=== PATIENT | female | born 1975 | race Caucasian/White ===

== ENCOUNTER 2017-06-26 22:26 | Emergency (ER) | payer OTHER ==
[~2017-06-26] VITALS: Ht 162.6 cm; Wt 73.9 kg
[~2017-06-26 22:26] MED LIST: ACET500; ALBU90OI INH; AMOCLA500 PO; AMOX500 PO; Antivert25 MG PO; Ativan1 MG SL; BISM300CH PO; CEPH500 PO; CIPR500 PO; CLAR500 PO; CLON.1 PO; DOXY100 PO; FAMO20 PO; Guaifenesin-Co118 ML PO; HYDACE5 PO; IBUP200; IBUP400 PO; IBUP600 PO; IBUP800 PO; METO25 PO; METO50 PO; METO50ER PO; MULVITMINE; OMEP20ER PO; OXYACE5T PO; OXYC5 PO; PENVK250 PO; PENVK500 PO; POTCHL10ER PO; PROM25 PO; RXHYDACE PO; RXPENVK250 PO; RXPROM25 PO; RXPROM25S PR; SUCR1 PO; SULTRISS; Ultram50 MG PO; VANCO IV; Veetids 500500 MG PO; Zithromax250 MG PO
[2017-06-26] MEDS ORDERED: LOSARTAN POTAS100 MG PO (22:59)
[2017-06-27] MEDS ORDERED: BENZ100A PO ×2 (01:11→05:53)
== END 2017-06-27 02:00 | disposition left against medical advice (07) ==
LOC: ER 22:26
DX: Z53.21 Procedure and treatment not carried out due to patient leaving prior to being seen by health care provider (principal)
CPT/HCPCS: 71046; 99283

== ENCOUNTER 2017-06-27 05:44 | Emergency (ER) | payer OTHER ==
[~2017-06-27] VITALS: Ht 162.6 cm; Wt 73.9 kg
[~2017-06-27 05:44] MED LIST changes: +BENZ100A PO; +LOSARTAN POTAS100 MG PO
[2017-06-27] MEDS ORDERED: BENZ100A PO (05:53)
== END 2017-06-27 06:00 | disposition home or self-care (01) ==
LOC: ER 05:44
DX: J20.9 Acute bronchitis, unspecified (principal); I10 Essential (primary) hypertension; F17.200 Nicotine dependence, unspecified, uncomplicated; Z88.5 Allergy status to narcotic agent; Z79.899 Other long term (current) drug therapy; Z87.442 Personal history of urinary calculi
CPT/HCPCS: 99283

== ENCOUNTER → 2017-06-29 | Outpatient (CLI) | payer OTHER | LOC: LAB SHORT 12:48 → LAB UCHC 12:48 | DX: N39.0 Urinary tract infection, site not specified (principal) | CPT/HCPCS: 87086 ==

== ENCOUNTER 2018-04-20 01:07 | Inpatient (IN) | payer OTHER ==
[~2018-04-20] VITALS: Ht 162.6 cm; Wt 72.7 kg
[2018-04-20 01:38] LABS: Source, Urine Clean Catch
[2018-04-20 01:40] LABS: Bilirubin, Urine Neg (Neg); Blood, Urine Neg (Neg); Glucose Qualitative, Urine Neg (Neg); Ketones, Urine Neg (Neg); Leukocyte Esterase, Urine Neg (Neg); Nitrite, Urine Neg (Neg); Protein, Urine Neg (Neg); Urobilinogen, Urine NORM (Normal)
[2018-04-20 01:42] LABS: Appearance, Urine Clear (Clear); Color, Urine Pale Yellow (P-Yellow)
[2018-04-20 01:51] LABS: U Amphetamine Screen Not Detected; U Barbituate Screen Not Detected; U Benzodiazapine Screen Not Detected; U Buprenorphine Screen Not Detected; U Cannabinoids Screen Not Detected; U Cocaine Screen Not Detected; U Methadone Screen Not Detected; U Methamphetamine Screen Not Detected; U Opiates Screen Not Detected; U Oxycodone Screen Not Detected; U Phencyclidine Screen Not Detected; U Propoxyphene Screen Not Detected
[2018-04-20 02:11] LABS: BASOPHILS ABSOLUTE AUTO 0.09 K/mm3 (0.00-0.23); BASOPHILS PERCENT AUTO 1 % (0-2); EOSINOPHILS ABSOLUTE AUTO 0.38 K/mm3 (0.00-0.68); EOSINOPHILS PERCENT AUTO 4 % (0-6); Hematocrit 37.9 % (33.0-51.0); Hemoglobin 12.8 g/dL (11.5-16.0); IMMATURE GRAN ABSOLUTE AUTO 0.05 K/mm3 (0.00-0.10); IMMATURE GRAN PERCENT AUTO 1 % (0-1); LYMPHOCYTES ABSOLUTE AUTO 5.87 K/mm3 (0.84-5.20); LYMPHOCYTES PERCENT AUTO 56 % (21-46); MONOCYTES ABSOLUTE AUTO 0.47 K/mm3 (0.16-1.47); MONOCYTES PERCENT AUTO 5 % (4-13); Mean Corpuscular HGB 33.5 pg (26.0-34.0); Mean Corpuscular HGB Conc 33.8 g/dL (31.5-36.5); Mean Corpuscular Volume 99 fL (80-100); Mean Platelet Volume 11.4 fL (9.1-12.4); NEUTROPHILS ABSOLUTE AUTO 3.66 K/mm3 (1.96-9.15); NEUTROPHILS PERCENT AUTO 35 % (41-73); Platelet Count 308 K/mm3 (150-400); RDW Standard Deviation 43.8 fL (35.1-46.3); Red Blood Cell Count 3.82 M/mm3 (3.80-5.20); White Blood Cell Count 10.52 K/mm3 (4.00-11.30)
[2018-04-20 02:17] LABS: Alanine Aminotransfer (ALT/SGP 25 U/L (12-78); Albumin, Blood 3.2 g/dL (3.4-5.0); Albumin/Globulin Ratio 0.8 (0.8-1.8); Alk Phos 118 U/L (50-136); Anion Gap 11 mmol/L (6-16); Aspartate Aminotrans (AST/SGOT 17 U/L (12-37); Bilirubin, Total 0.2 mg/dL (0.1-1.0); Blood Urea Nitrogen 14 mg/dL (8-24); Bun/Creatinine Ratio 14.4 (12.0-20.0); CO2, Blood 19 mmol/L (21-32); Calcium, Blood 8.1 mg/dL (8.5-10.1); Chloride, Blood 109 mmol/L (98-108); Creatinine, Blood 0.97 mg/dL (0.40-1.00); Ethanol (Alcohol), Blood, Med 229 mg/dL; Globulin, Blood 3.9 g/dL (2.2-4.0); Glomerular Filtration Rate >60 (60-); Glucose, Blood 107 mg/dL (70-99); Potassium, Blood 3.7 mmol/L (3.5-5.5); Salicylate 5.5 mg/dL (2.8-20.0); Sodium, Blood 139 mmol/L (136-145); Total Protein, Blood 7.1 g/dL (6.4-8.2)
[2018-04-20 02:23] LABS: Acetaminophen, Random <2.0 ug/mL (10.0-30.0)
[2018-04-20] MEDS ORDERED: CLON.1 PO (02:37)
--- NOTE | 2018-04-20 04:01 | NUR ---
DR. YOUNG NOTIFIED AND UPDATED. NEW ORDERS TO BOLUS ONE LITER NORMAL SALINE THEN MAINTENANCE FLUID OF NORMAL SALINE 75mL/hr X1 LITER.
--- NOTE | 2018-04-20 04:15 | NUR ---
PT ARRIVED TO ROOM ICU 15 VIA GURNEY FROM THE ED. PT STOOD AND TRANSFERRED SELF TO ICU BED WITHOUT DIFFICULTY. PT A+O AND ASWERED QUESTIONS APPROPRIATELY. PT DENIED DIZZINESS, PAIN, AND/OR NAUSEA. PT SOON BECAME DROWSY BUT AROUSABLE. PT BECAME MORE HYPOTENSIVE AND BRADYCARDIC DURING SLEEP. DR. YOUNG NOTIFIED AND UPDATED. NEW ORDERS TO BOLUS 1L NS AND THEN INFUSION NS 75/hr X1 LITER.
--- NOTE | 2018-04-20 04:30 | NUR ---
POISON CONTROL CALLED AND GIVEN UPDATE. ALL QUESTIONS ANSWERED. POISON CONTROL FAXING BETA ADELINE OVERDOSE INFORMATION.
--- NOTE | 2018-04-20 05:50 | NUR ---
DR. YOUNG AT BEDSIDE. NO NEW ORDERS GIVEN AT THIS TIME.
--- NOTE | 2018-04-20 08:10 | NUR ---
ASSUMED CARE: REPORT RECEIVED FROM GEMINI Reno RN. ASSUMED CARE OF THIS PT AT APPROX 0700. ON ASSESSMENT, PT IS RESTING QUIETLY. SHE DENIES PAIN OR NEEDS & STS SHE IS CURRENTLY EXPERIENCING NO SI. PROVIDER, DR. YANEZ, HAS BEEN AT BEDSIDE THIS MORNING WELL. REGULAR DIET HAS BEEN ORDERED FOR BREAKFAST. WILL CONTINUE TO MONITOR & UPDATE NEEDED.
--- NOTE | 2018-04-20 17:50 | NUR ---
SHIFT SUMMARY: NO ACUTE CHANGES THIS SHIFT. PT A&O, PLEASANT & COOPERATIVE W/ CARE. SHE HAS CONTINUED TO DENY SI. PT WAS CLEARED BY DR. SANCHEZ OF SUICIDE PRECAUTIONS THIS AFTERNOON, 1:1 SITTER NO LONGER AT BEDSIDE. LS CLEAR T/O, PT REMAINS ON RA W/ O2 SATS > 92%. MONITOR SHOWS SB W/ HR 40-50s. POISON CONTROL UPDATED THIS AM & RECOMMENDS TELE MONITORING FOR ANOTHER 24 HRS FROM THAT TIME. BT x4, HEALTHY APPETITE, VOIDING W/O DIFFICULTY. SKIN OVERALL CDI. MED TELE STATUS. WILL CONTINUE TO MONITOR & REPORT OFF TO ONCOMING RN.
[2018-04-21 03:20] LABS: BASOPHILS ABSOLUTE AUTO 0.06 K/mm3 (0.00-0.23); BASOPHILS PERCENT AUTO 1 % (0-2); EOSINOPHILS ABSOLUTE AUTO 0.22 K/mm3 (0.00-0.68); EOSINOPHILS PERCENT AUTO 3 % (0-6); Hematocrit 37.5 % (33.0-51.0); Hemoglobin 12.6 g/dL (11.5-16.0); IMMATURE GRAN ABSOLUTE AUTO 0.01 K/mm3 (0.00-0.10); IMMATURE GRAN PERCENT AUTO 0 % (0-1); LYMPHOCYTES ABSOLUTE AUTO 3.87 K/mm3 (0.84-5.20); LYMPHOCYTES PERCENT AUTO 50 % (21-46); MONOCYTES ABSOLUTE AUTO 0.43 K/mm3 (0.16-1.47); MONOCYTES PERCENT AUTO 6 % (4-13); Mean Corpuscular HGB 33.6 pg (26.0-34.0); Mean Corpuscular HGB Conc 33.6 g/dL (31.5-36.5); Mean Corpuscular Volume 100 fL (80-100); Mean Platelet Volume 11.4 fL (9.1-12.4); NEUTROPHILS ABSOLUTE AUTO 3.15 K/mm3 (1.96-9.15); NEUTROPHILS PERCENT AUTO 41 % (41-73); Platelet Count 269 K/mm3 (150-400); RDW Coefficient Variation 12.1 % (11.7-14.2); RDW Standard Deviation 44.8 fL (35.1-46.3); Red Blood Cell Count 3.75 M/mm3 (3.80-5.20); White Blood Cell Count 7.74 K/mm3 (4.00-11.30)
[2018-04-21 03:37] LABS: Albumin/Globulin Ratio 0.8 (0.8-1.8); Bilirubin, Total 0.4 mg/dL (0.1-1.0); Bun/Creatinine Ratio 15.9 (12.0-20.0); Calcium, Blood 8.6 mg/dL (8.5-10.1); Creatinine, Blood 1.13 mg/dL (0.40-1.00); Globulin, Blood 3.8 g/dL (2.2-4.0); Potassium, Blood 4.1 mmol/L (3.5-5.5); Total Protein, Blood 6.8 g/dL (6.4-8.2)
--- NOTE | 2018-04-21 07:30 | NUR ---
ASSUMED CARE OF PATIENT; SEE ASSESSMENT CHARTING FOR DETAILS. PATIENT A/O X3; DENIES ACUTE PAIN OR DISCOMFORT. DENIES SUICIDAL IDEATION. ANXIOUS TO BE DISCHARGED HOME, THIS AM, D/T MULTIPLE APPTS., TO INCLUDE A COURT HEARTING. DR. YANEZ ARRIVED AND WORKING ON D/C ORDERS. PATIENT UP IN ROOM ADLIB; COOPERATIVE. STATES SHE MAY HAVE TO WALK D/T UNABLE TO REACH HER BOYFRIEND OR ANYONE ELSE TO DRIVE HER; RN OFFERED THAT THE HOSPITAL PROVIDES [facility], WHEN AVAILABLE, TO TAKE PATIENTS' HOME WHO HAVE NO TRANSPORTATION.
--- NOTE | 2018-04-21 08:30 | NUR ---
D/C RX'S (X3) CALLED INTO [facility]; PHYSICIAN ORDEREDD 2 WEEK SUPPLY TO ALLOW F/U WITH PCP IN 1-2 WEEKS.
[2018-04-21] MEDS ORDERED: CLON.1 PO (08:31)
--- NOTE | 2018-04-21 08:45 | NUR ---
DISCHARGE INSTRUCTIONS COMPLETED; DISCUSSED WITH PATIENT, IN DETAIL, AND SHE SIGNED ACKNOWLEDGEMENT AND UNDERSTANDING. STILL UNABLE TO OBTAIN A RIDE HOME; RN WILL CONTACT [facility] AND SEE IF THEY CAN MAKE IT.
--- NOTE | 2018-04-21 08:55 | NUR ---
T/C TO [facility]; UNABLE TO SPEAK TO MEDICAL BILLER CODER AND MESSAGE ON VOICEMAIL INSTRUCTS NOT TO LEAVE MESSAGE BUT TO KEEP TRYING TO CALL BACK; RN ATTEMPTED THIS SEVERAL TIMES; SERVICE IS VERY BUSY DUE TO RECENT STORM. PATIENT STATES SHE WILL WALK D/T HAS AN APPT. WITH [facility] AT 1000 RE: HER KIDS. PATIENT DRESSED; RN WILL REMOVE IV'S (X2).
--- NOTE | 2018-04-21 09:10 | NUR ---
DISCHARGED; ACCOMPANIED TO FRONT DOOR AND PATIENT AMBULATING TO APPT.; VERY STURDY ON FEET. PERSONAL BELONGINGS WITH PATIENT.
== END 2018-04-21 09:10 | disposition home or self-care (01) | DRG 918 ==
LOC: ER 01:07 → ICUW 01:08
PROVIDERS: Emergency Medicine; Hospitalist; ADMIT Internal Medicine
DX: T46.5X1A Poisoning by other antihypertensive drugs, accidental (unintentional), initial encounter (principal); E87.2 Acidosis; T44.7X1A Poisoning by beta-adrenoreceptor antagonists, accidental (unintentional), initial encounter; F10.129 Alcohol abuse with intoxication, unspecified; R00.1 Bradycardia, unspecified; I95.9 Hypotension, unspecified; F43.21 Adjustment disorder with depressed mood; F17.210 Nicotine dependence, cigarettes, uncomplicated; Z88.8 Allergy status to other drugs, medicaments and biological substances
CPT/HCPCS: 36415; 80053; 81003; 81025; 83605; 84443; 85025; 93005; 93010; G0378; G0480; J1650; J7030

== ENCOUNTER 2018-07-05 16:58 | Emergency (ER) | payer OTHER ==
[~2018-07-05] VITALS: Ht 162.6 cm; Wt 72.0 kg
[2018-07-05 17:51] LABS: Source, Urine Clean Catch
[2018-07-05 17:56] LABS: Appearance, Urine Clear (Clear); Bilirubin, Urine Neg (Neg); Blood, Urine 5+ (Neg); Color, Urine Amber (P-Yellow); Glucose Qualitative, Urine Neg (Neg); Ketones, Urine Neg (Neg); Leukocyte Esterase, Urine 1+ (Neg); Nitrite, Urine Neg (Neg); Protein, Urine Neg (Neg); Urobilinogen, Urine 1+ (Normal)
[2018-07-05 18:25] LABS: Bacteria Few /hpf; Squamous Epithelial Cells Few /hpf (Few)
[2018-07-05 18:28] LABS: BASOPHILS ABSOLUTE AUTO 0.04 K/mm3 (0.00-0.23); BASOPHILS PERCENT AUTO 0 % (0-2); EOSINOPHILS ABSOLUTE AUTO 0.02 K/mm3 (0.00-0.68); EOSINOPHILS PERCENT AUTO 0 % (0-6); Hematocrit 39.7 % (33.0-51.0); Hemoglobin 13.3 g/dL (11.5-16.0); IMMATURE GRAN ABSOLUTE AUTO 0.06 K/mm3 (0.00-0.10); IMMATURE GRAN PERCENT AUTO 0 % (0-1); LYMPHOCYTES PERCENT AUTO 12 % (21-46); MONOCYTES ABSOLUTE AUTO 0.97 K/mm3 (0.16-1.47); MONOCYTES PERCENT AUTO 7 % (4-13); Mean Corpuscular HGB 33.3 pg (26.0-34.0); Mean Corpuscular HGB Conc 33.5 g/dL (31.5-36.5); Mean Corpuscular Volume 100 fL (80-100); Mean Platelet Volume 11.3 fL (9.1-12.4); NEUTROPHILS ABSOLUTE AUTO 11.58 K/mm3 (1.96-9.15); NEUTROPHILS PERCENT AUTO 80 % (41-73); Platelet Count 344 K/mm3 (150-400); RDW Coefficient Variation 11.9 % (11.7-14.2); RDW Standard Deviation 44.5 fL (35.1-46.3); Red Blood Cell Count 3.99 M/mm3 (3.80-5.20); White Blood Cell Count 14.47 K/mm3 (4.00-11.30)
[2018-07-05 18:53] LABS: Alanine Aminotransfer (ALT/SGP 38 U/L (12-78); Albumin, Blood 3.4 g/dL (3.4-5.0); Albumin/Globulin Ratio 0.6 (0.8-1.8); Alk Phos 197 U/L (50-136); Anion Gap 6 mmol/L (6-16); Aspartate Aminotrans (AST/SGOT 26 U/L (12-37); Bilirubin, Total 1.4 mg/dL (0.1-1.0); Blood Urea Nitrogen 7 mg/dL (8-24); Bun/Creatinine Ratio 7.7 (12.0-20.0); CO2, Blood 26 mmol/L (21-32); Chloride, Blood 102 mmol/L (98-108); Creatinine, Blood 0.91 mg/dL (0.40-1.00); Globulin, Blood 5.4 g/dL (2.2-4.0); Glomerular Filtration Rate >60 (60-); Glucose, Blood 110 mg/dL (70-99); Potassium, Blood 3.3 mmol/L (3.5-5.5); Sodium, Blood 134 mmol/L (136-145); Total Protein, Blood 8.8 g/dL (6.4-8.2)
[2018-07-05] MEDS ORDERED: CEPH500 PO (19:42)
[2018-07-05] MEDS ORDERED: KETO10 PO (19:42)
== END 2018-07-05 19:56 | disposition home or self-care (01) ==
LOC: ER 16:58
PROVIDERS: Emergency Medicine
DX: N39.0 Urinary tract infection, site not specified (principal); D72.829 Elevated white blood cell count, unspecified; Z88.8 Allergy status to other drugs, medicaments and biological substances; Z79.899 Other long term (current) drug therapy; I10 Essential (primary) hypertension; F17.210 Nicotine dependence, cigarettes, uncomplicated
CPT/HCPCS: 36415; 76770; 80053; 81001; 83690; 85025; 87086; 96361; 96374; 99284-25; J1885; J7030

== ENCOUNTER 2018-11-03 23:26 | Emergency (ER) | payer OTHER ==
[~2018-11-03] VITALS: Ht 162.6 cm; Wt 71.7 kg
[~2018-11-03 23:26] MED LIST changes: +KETO10 PO
[2018-11-04 00:26] LABS: Source, Urine Clean Catch
[2018-11-04 00:36] LABS: Bilirubin, Urine Neg (Neg); Blood, Urine 3+ (Neg); Glucose Qualitative, Urine Neg (Neg); Ketones, Urine Neg (Neg); Leukocyte Esterase, Urine 1+ (Neg); Nitrite, Urine Neg (Neg); Protein, Urine Neg (Neg); Specific Gravity, Urine 1.015 (1.003-1.022); Urobilinogen, Urine NORM (Normal)
[2018-11-04 00:43] LABS: BASOPHILS ABSOLUTE AUTO 0.06 K/mm3 (0.00-0.23); BASOPHILS PERCENT AUTO 1 % (0-2); EOSINOPHILS ABSOLUTE AUTO 0.19 K/mm3 (0.00-0.68); EOSINOPHILS PERCENT AUTO 2 % (0-6); Hematocrit 39.6 % (33.0-51.0); Hemoglobin 13.5 g/dL (11.5-16.0); IMMATURE GRAN ABSOLUTE AUTO 0.05 K/mm3 (0.00-0.10); IMMATURE GRAN PERCENT AUTO 0 % (0-1); LYMPHOCYTES ABSOLUTE AUTO 2.58 K/mm3 (0.84-5.20); LYMPHOCYTES PERCENT AUTO 20 % (21-46); MONOCYTES ABSOLUTE AUTO 0.83 K/mm3 (0.16-1.47); MONOCYTES PERCENT AUTO 6 % (4-13); Mean Corpuscular HGB 33.9 pg (26.0-34.0); Mean Corpuscular HGB Conc 34.1 g/dL (31.5-36.5); Mean Corpuscular Volume 100 fL (80-100); Mean Platelet Volume 11.3 fL (9.1-12.4); NEUTROPHILS ABSOLUTE AUTO 9.23 K/mm3 (1.96-9.15); NEUTROPHILS PERCENT AUTO 71 % (41-73); Platelet Count 279 K/mm3 (150-400); RDW Coefficient Variation 12.8 % (11.7-14.2); RDW Standard Deviation 47.4 fL (35.1-46.3); Red Blood Cell Count 3.98 M/mm3 (3.80-5.20); White Blood Cell Count 12.94 K/mm3 (4.00-11.30)
[2018-11-04 00:54] LABS: Appearance, Urine Clear (Clear); Color, Urine Yellow (P-Yellow)
[2018-11-04 00:55] LABS: Bacteria Few /hpf; Red Blood Cells, Urine 0-2 /hpf (0-2); Squamous Epithelial Cells Few /hpf (Few)
[2018-11-04 01:01] LABS: Alanine Aminotransfer (ALT/SGP 21 U/L (12-78); Albumin, Blood 3.3 g/dL (3.4-5.0); Albumin/Globulin Ratio 0.7 (0.8-1.8); Alk Phos 174 U/L (50-136); Anion Gap 6 mmol/L (6-16); Aspartate Aminotrans (AST/SGOT 11 U/L (12-37); Bilirubin, Total 0.5 mg/dL (0.1-1.0); Blood Urea Nitrogen 16 mg/dL (8-24); Bun/Creatinine Ratio 15.8 (12.0-20.0); CO2, Blood 25 mmol/L (21-32); Calcium, Blood 9.3 mg/dL (8.5-10.1); Chloride, Blood 109 mmol/L (98-108); Creatinine, Blood 1.01 mg/dL (0.40-1.00); Globulin, Blood 4.6 g/dL (2.2-4.0); Glomerular Filtration Rate >60 (60-); Glucose, Blood 109 mg/dL (70-99); Potassium, Blood 3.4 mmol/L (3.5-5.5); Sodium, Blood 140 mmol/L (136-145); Total Protein, Blood 7.9 g/dL (6.4-8.2)
[2018-11-04] MEDS ORDERED: Keflex500 MG PO (03:04)
[2018-11-04] MEDS ORDERED: Flomax0.4 MG PO (03:04)
== END 2018-11-04 03:33 | disposition home or self-care (01) ==
LOC: ER 23:26
PROVIDERS: Emergency Medicine
DX: N13.2 Hydronephrosis with renal and ureteral calculous obstruction (principal); I10 Essential (primary) hypertension; F17.210 Nicotine dependence, cigarettes, uncomplicated; Z88.8 Allergy status to other drugs, medicaments and biological substances; Z79.899 Other long term (current) drug therapy; Z87.442 Personal history of urinary calculi
CPT/HCPCS: 36415; 76770; 80053; 81001; 81025; 83690; 85025; 87086; 96374; 99284-25; J1885

== ENCOUNTER 2018-11-04 18:34 | Emergency (ER) | payer OTHER ==
[~2018-11-04] VITALS: Ht 162.6 cm; Wt 71.7 kg
[~2018-11-04 18:34] MED LIST changes: +Flomax0.4 MG PO; +Keflex500 MG PO
== END 2018-11-04 20:00 | disposition home or self-care (01) ==
LOC: ER 18:34
DX: N20.1 Calculus of ureter (principal); I10 Essential (primary) hypertension; F17.210 Nicotine dependence, cigarettes, uncomplicated; Z88.8 Allergy status to other drugs, medicaments and biological substances; Z79.2 Long term (current) use of antibiotics; Z79.899 Other long term (current) drug therapy
CPT/HCPCS: 99282; A9270

== ENCOUNTER 2019-01-26 19:28 | Emergency (ER) | payer OTHER ==
[~2019-01-26] VITALS: Ht 162.6 cm; Wt 71.7 kg
== END 2019-01-26 21:37 | disposition home or self-care (01) ==
LOC: ER 19:28
DX: S93.402A Sprain of unspecified ligament of left ankle, initial encounter (principal); I10 Essential (primary) hypertension; F17.210 Nicotine dependence, cigarettes, uncomplicated; Z79.899 Other long term (current) drug therapy; X58.XXXA Exposure to other specified factors, initial encounter
CPT/HCPCS: 73610; 99283-25; A9270-GY

== ENCOUNTER 2019-01-31 23:10 | Emergency (ER) | payer OTHER ==
[~2019-01-31] VITALS: Ht 162.6 cm; Wt 71.7 kg
[2019-02-01] MEDS ORDERED: IBUP600 PO (00:11)
== END 2019-02-01 00:25 | disposition home or self-care (01) ==
LOC: ER 23:10
DX: M76.812 Anterior tibial syndrome, left leg (principal); F17.210 Nicotine dependence, cigarettes, uncomplicated; Z88.8 Allergy status to other drugs, medicaments and biological substances; I10 Essential (primary) hypertension; Z79.899 Other long term (current) drug therapy
CPT/HCPCS: 99282; A9270-GY

== ENCOUNTER 2019-02-17 07:02 | Inpatient (IN) | payer OTHER ==
[~2019-02-17] VITALS: Ht 165.1 cm; Wt 67.9 kg
[2019-02-17 07:52] LABS: Hematocrit 44.4 % (33.0-51.0); Hemoglobin 14.9 g/dL (11.5-16.0); Mean Corpuscular HGB 33.1 pg (26.0-34.0); Mean Corpuscular HGB Conc 33.6 g/dL (31.5-36.5); Mean Corpuscular Volume 99 fL (80-100); Mean Platelet Volume 11.5 fL (9.1-12.4); Platelet Count 293 K/mm3 (150-400); RDW Coefficient Variation 12.6 % (11.7-14.2); RDW Standard Deviation 45.9 fL (35.1-46.3)
[2019-02-17 07:55] LABS: Calcium, Ionized (POC) 1.05 mmol/L (1.10-1.46); Chloride (POC) 107 mmol/L (98-108); Creatinine (POC) 0.8 mg/dL (0.6-1.0); Glucose (ISTAT POC) 112 mg/dL (70-99); Hemoglobin (POC) 14.3 g/dL (12.0-16.0); Potassium (POC) 3.6 mmol/L (3.5-5.5); Sodium (POC) 138 mmol/L (135-148); Total CO2 (POC) 21 mmol/L (21-32)
[2019-02-17 08:14] LABS: Alanine Aminotransfer (ALT/SGP 28 U/L (12-78); Albumin, Blood 3.5 g/dL (3.4-5.0); Albumin/Globulin Ratio 0.8 (0.8-1.8); Alk Phos 115 U/L (50-136); Anion Gap 7 mmol/L (6-16); Aspartate Aminotrans (AST/SGOT 17 U/L (12-37); Bilirubin, Total 0.4 mg/dL (0.1-1.0); Blood Urea Nitrogen 16 mg/dL (8-24); CHOL/HDL RATIO 4.7; CO2, Blood 24 mmol/L (21-32); Chloride, Blood 106 mmol/L (98-108); Cholesterol 160 mg/dL (50-200); Creatinine, Blood 0.89 mg/dL (0.40-1.00); Globulin, Blood 4.4 g/dL (2.2-4.0); Glomerular Filtration Rate >60 (60-); Glucose, Blood 124 mg/dL (70-99); HDL Cholesterol 34 mg/dL (>39); Low Density Lipoprotein Chol 103 mg/dL (0-110); Magnesium, Blood 1.6 mg/dL (1.6-2.4); Potassium, Blood 3.6 mmol/L (3.5-5.5); Sodium, Blood 137 mmol/L (136-145); Total Protein, Blood 7.9 g/dL (6.4-8.2); Triglycerides 113 mg/dL (30-160); Troponin I 0.262 ng/mL (0.000-0.040); Very Low Density Lipoprot Chol 22 mg/dL (6-32)
--- NOTE | 2019-02-17 09:30 | NUR ---
Patient resting with BIPAP in place with same settings and sats upper 90%'s. She is clearing and having better conversations. Systolic 90-120 and HR 70-80's. No other significant changes, Using extremoities better and quicker with following directions.
--- NOTE | 2019-02-17 09:45 | NUR ---
Patient arrived from label drier post mid RCA ballooning and stent. She is alert and oriented and rate 50-60 with sinus arrythmias. She denies any current chest pain. Assessment done with spouse and patient. She states she is currently homeless and living in truck outside of aunts apt.. She is on RA and sats 100%. TR band intact and site shows no signs of bleeding or hematoma and replace wrist support.
--- NOTE | 2019-02-17 11:23 | NUR ---
Patient has several times stated she had BM and last time rond hard showing and got her up to bedside cammode and had extra large BM very dark and almost black. She was a two person assist to cammode and 1 back. She was able to reposition self back in bed. She was on 4L O2 via NC for about an hour and just placed her back on BIPAP original settings for a nap.
--- NOTE | 2019-02-17 11:45 | NUR ---
Patient was up to bathroom with SBA and back to bed and repositions self, shortly after c/o 5-6/10 chest pain that resolved not to long after and no sign of rhythm change. She tolerated liquids and 1/2 sandwich and then had some nausea, medicated wioth Zofran 8mg. Dr Barron by and wanted EKG and done. TR band site WNL's and no change from earlier.
--- NOTE | 2019-02-17 14:22 | NUR ---
Patient has been up to bathroom several times. Echo done. She tolerated lunch well. Has denied any chest pain since earlier note. Started to let air out of TR band and has no signs of bleeding or hematoma. Still having ongoing arrythmias, but asymptomatic. Remains on RA and sats 100%. She has been resting off and on.
--- NOTE | 2019-02-17 15:22 | NUR ---
TR band off and very small hematoma prior to removing that messaged out, cleaned site and placed bandaid. Patient continues to have idio ventricular runs and updated Dr Barron and am giving 1GM Mag. She denies any pain or signs or symptoms. She has been resting off and on.
--- NOTE | 2019-02-17 17:59 | NUR ---
Patient up independent in room. She tolerated dinner well. TR site C/D/I and bleeding or hematoma. Systolic 90-120's and HR 50-60's. No recent idioventricular runs over last two hours.
[2019-02-18 03:42] LABS: BASOPHILS ABSOLUTE AUTO 0.07 K/mm3 (0.00-0.23); BASOPHILS PERCENT AUTO 1 % (0-2); EOSINOPHILS ABSOLUTE AUTO 0.21 K/mm3 (0.00-0.68); EOSINOPHILS PERCENT AUTO 2 % (0-6); Hematocrit 39.8 % (33.0-51.0); Hemoglobin 13.2 g/dL (11.5-16.0); IMMATURE GRAN ABSOLUTE AUTO 0.02 K/mm3 (0.00-0.10); IMMATURE GRAN PERCENT AUTO 0 % (0-1); LYMPHOCYTES ABSOLUTE AUTO 3.78 K/mm3 (0.84-5.20); LYMPHOCYTES PERCENT AUTO 39 % (21-46); MONOCYTES ABSOLUTE AUTO 0.71 K/mm3 (0.16-1.47); MONOCYTES PERCENT AUTO 7 % (4-13); Mean Corpuscular HGB 33.2 pg (26.0-34.0); Mean Corpuscular HGB Conc 33.2 g/dL (31.5-36.5); Mean Corpuscular Volume 100 fL (80-100); Mean Platelet Volume 11.4 fL (9.1-12.4); NEUTROPHILS ABSOLUTE AUTO 4.85 K/mm3 (1.96-9.15); NEUTROPHILS PERCENT AUTO 50 % (41-73); Platelet Count 247 K/mm3 (150-400); RDW Standard Deviation 48.1 fL (35.1-46.3); Red Blood Cell Count 3.98 M/mm3 (3.80-5.20); White Blood Cell Count 9.64 K/mm3 (4.00-11.30)
[2019-02-18 04:07] LABS: Alanine Aminotransfer (ALT/SGP 54 U/L (12-78); Albumin, Blood 2.9 g/dL (3.4-5.0); Albumin/Globulin Ratio 0.7 (0.8-1.8); Alk Phos 100 U/L (50-136); Anion Gap 4 mmol/L (6-16); Aspartate Aminotrans (AST/SGOT 199 U/L (12-37); Bilirubin, Total 0.6 mg/dL (0.1-1.0); Blood Urea Nitrogen 13 mg/dL (8-24); Bun/Creatinine Ratio 12.5 (12.0-20.0); CO2, Blood 27 mmol/L (21-32); Calcium, Blood 8.4 mg/dL (8.5-10.1); Chloride, Blood 110 mmol/L (98-108); Cholesterol 123 mg/dL (50-200); Creatinine, Blood 1.04 mg/dL (0.40-1.00); Globulin, Blood 3.9 g/dL (2.2-4.0); Glomerular Filtration Rate >60 (60-); Glucose, Blood 97 mg/dL (70-99); Potassium, Blood 3.9 mmol/L (3.5-5.5); Sodium, Blood 141 mmol/L (136-145); Total Protein, Blood 6.8 g/dL (6.4-8.2); Triglycerides 108 mg/dL (30-160)
--- NOTE | 2019-02-18 05:11 | NUR ---
SHIFT SUMMARY PATIENT SLEPT WELL THROUGH NIGHT. AMBULATED SELF TO COMMODE W/ SET-UP ASSISTANCE. NO C/O CHEST PAIN. R. RADIAL SITE CLEARN/DRY/INTACT, NO S/S HEMATOMA, BLEEDING. PULSES REMAIN STRONG, GOOD CAP REFILL. VITAL SIGNS STABLE. WILL CONTINUE TO MONITOR.
--- NOTE | 2019-02-18 07:30 | NUR ---
Recieved report from Jl CRUZ. Patient sleeping with light off and TV on. She remains on RA and sats 100%. HR 60's and a-fib/ flutter with many PVC. 20 ga IV LAC dressing intact and site WNL's and is flushed and SL'd
--- NOTE | 2019-02-18 09:30 | NUR ---
Patient awake and eating breakfast. She tolerated am meds without difficulty. Dr Barron by and is starting Eliquis and TRACIE and cardioversion in am. A-fib/flutter with many PVC's. She states feeling heart flutter with PVC's and very irritating. She denies any chest pain. Exp[lained procedure in more detail for am. Remains on RA and sats 100%.
--- NOTE | 2019-02-18 11:40 | NUR ---
No significant changes with patient. She is sitting up in bed eating lunch with spouse at bedside.
--- NOTE | 2019-02-18 13:30 | NUR ---
Patient converted to SR/SB at 1321. Talked with Dr Barron and got orders form fluids r/t hypotension 80's systolic with MAP low 60's. Remains on RA and sats 100% and independent in room.
--- NOTE | 2019-02-18 16:10 | NUR ---
Fluids running at 150ml/hr and patient still hypotensive and asymptomatic. Systolics 81 and MAP 62-67, HR 56-65. Patient denies any current needs or pain. Gave report to Jacqui CRUZ.
--- NOTE | 2019-02-18 16:45 | NUR ---
1600: CARE ASSUMED, PT SITTING IN BED WATCHING TV, DENIES CHEST PAIN/PRESSURE, SOB, OR DIZZINESS. SBP 81, MAP 62, PT ASYMPTOMATIC. RIGHT RADIAL ACCESS SITE WNL, HR 50'S SINUS BRADYCARDIA. PT DENIES NEEDS OR C/O AT THIS TIME.
--- NOTE | 2019-02-18 18:42 | NUR ---
PT SLEPT OFF AND ON, DENIES C/O CHEST PAIN/PALPITAITONS/PRESSURE/SOB. BP REMAINS HYPOTENSIVE, SBP 80-90, PT ASYMPTOMATIC. HR SINUS BRADYCARDIA 50'S. BANDAID TO RIGHT WRIST CDI, SITE WNL. PT TOLERATED DINNER WELL, VOIDING CLEAR YELLOW URINE WITHOUT DIFFICULTY, GAIT STEADY, PT INDEPENDENT IN ROOM, S/O AT BEDSIDE. REPORT TO ONCOMING SHIFT.
--- NOTE | 2019-02-19 06:07 | NUR ---
SHIFT SUMMARY PATIENT SLEPT WELL THROUGH NIGHT. @ 03:54, PATIENT STARTS IN A CONSISTENT BIGEMINY RHYTHM, DID DROP HR TO 36, REBOUNDED AFTER WAKING UP. PATIENT STATES SHE WAS DREAMING, WAS SLEEPING SOUNDLY. BP & SPO2 STABLE. WILL CONTINUE TO MONITOR.
--- NOTE | 2019-02-19 09:38 | NUR ---
PT ASSESSED THIS AM AT 0745. PT AWAKE IN BED, DENIES COMPLAINTS. DENIES C/O CHEST PAIN/PRESSURE,NAUSEA/SOB. PT IN SINUS RHYTHM/ W PAC'S IN BIGEMINY. BP STABLE. DR NIEVES IN THIS AM TO SEE PT. PT MAY BE DC'D HOME THIS AFTERNOON PER
--- NOTE | 2019-02-19 11:33 | NUR ---
PT OOB TO SHOWER. TOLERATED WELL. BP SLIGHTLY HYPOTENSIVE W MAP>65. PT ASYMPTOMATIC; DENIES DIZZINESS. RHYTHM SINUS BRADYCARDIA WITH BIGEMINY PATTERN OF MULTIPLE PAC'S. AGAIN PT ASYMPTOMATIC AND IS LOOKING FORWARD TO GOING HOME
[2019-02-19] MEDS ORDERED: METO25 PO (13:31)
[2019-02-19] MEDS ORDERED: ELIQUIS5 MG PO (13:32)
[2019-02-19] MEDS ORDERED: ASPI81CH PO (13:32)
[2019-02-19] MEDS ORDERED: CLOP75 PO (13:33)
[2019-02-19] MEDS ORDERED: ATOR40TA PO (13:33)
--- NOTE | 2019-02-19 14:27 | NUR ---
VERBAL AND WRITTEN DC INSTRUCTIONS GIVEN TO PT AND FAMILY WITH CLEAR UNDERSTANDING. PT SENT HOME W [employer] SAMPLES PROVIDED BY DR NIEVES'S OFFICE. RX'S FAXED TO [facility]. POST OP APPOINTMENT MADE. R WRIST WITH OPSIRE C/D/I, NO SWELLING, NO HEMATOMA, NO BLEEDING. PT DENIES ALL COMPLAINTS; VERY HAPPY TO BE GOING HOME. PT DISCHARGED IN CARE OF S/O AND OTHER FAMILY AT 1426.
--- NOTE | 2019-02-19 17:57 | NUR ---
Per admit trigger, I met with Jany to offer information regarding ACP. After educating her on the benefits and purpose of an Advanced Directive, she was very interested in completing one. She would like her SO to be her MPOA, and Jany apeared to understand that without a document like this in-place, he children would be the ones making decisions if she could not speak for herself. She is being D/c soon.
== END 2019-02-19 14:26 | disposition home or self-care (01) | DRG 247 ==
LOC: ER 07:02 → ICUW 07:52 → ICUE 09:24
PROVIDERS: Emergency Medicine; ADMIT Internal Medicine Interventional Cardiology
PROC: 027034Z Dilation of Coronary Artery, One Artery with Drug-eluting Intraluminal Device, Percutaneous Approach (ICD-10-PCS; principal; 2019-02-17)
PROC: B240ZZ3 Ultrasonography of Single Coronary Artery, Intravascular (ICD-10-PCS; 2019-02-17)
PROC: 4A023N7 Measurement of Cardiac Sampling and Pressure, Left Heart, Percutaneous Approach (ICD-10-PCS; 2019-02-17)
PROC: B2151ZZ Fluoroscopy of Left Heart using Low Osmolar Contrast (ICD-10-PCS; 2019-02-17)
PROC: B2111ZZ Fluoroscopy of Multiple Coronary Arteries using Low Osmolar Contrast (ICD-10-PCS; 2019-02-17)
DX: I21.11 ST elevation (STEMI) myocardial infarction involving right coronary artery (principal); I47.2 Ventricular tachycardia; I10 Essential (primary) hypertension; F17.210 Nicotine dependence, cigarettes, uncomplicated; I48.91 Unspecified atrial fibrillation; I95.9 Hypotension, unspecified; I25.10 Atherosclerotic heart disease of native coronary artery without angina pectoris
CPT/HCPCS: 36415; 76937; 80047; 80053; 80061; 82465; 83735; 84478; 84484; 85014; 85025; 85027; 85347; 86850; 86900; 86901; 92978; 93005; 93010; 93306; 93458; 96374; 96375; 99152; 99153; 99285-25; C1725; C1753; C1769; C1874; C1887; C1894; C9600; C9606; J0461; J1644; J1650; J2250; J2405; J3010; J3475; J7030; Q9967

== ENCOUNTER 2019-09-05 20:46 | Emergency (ER) | payer OTHER ==
[~2019-09-05] VITALS: Ht 162.6 cm; Wt 72.6 kg
[~2019-09-05 20:46] MED LIST changes: +ASPI81CH PO; +ATOR40TA PO; +CLOP75 PO; +ELIQUIS5 MG PO
== END 2019-09-05 22:00 | disposition home or self-care (01) ==
LOC: ER 20:46
DX: R04.0 Epistaxis (principal); Z88.8 Allergy status to other drugs, medicaments and biological substances; Z79.82 Long term (current) use of aspirin; Z79.899 Other long term (current) drug therapy; I25.2 Old myocardial infarction; I10 Essential (primary) hypertension; F17.210 Nicotine dependence, cigarettes, uncomplicated
CPT/HCPCS: 99283

== ENCOUNTER 2019-12-31 09:37 | Emergency (ER) | payer OTHER ==
[~2019-12-31] VITALS: Ht 162.6 cm; Wt 77.1 kg
[2019-12-31 11:12] LABS: BASOPHILS ABSOLUTE AUTO 0.07 K/mm3 (0.00-0.23); BASOPHILS PERCENT AUTO 1 % (0-2); EOSINOPHILS ABSOLUTE AUTO 0.42 K/mm3 (0.00-0.68); EOSINOPHILS PERCENT AUTO 4 % (0-6); Hematocrit 34.4 % (33.0-51.0); Hemoglobin 10.5 g/dL (11.5-16.0); IMMATURE GRAN ABSOLUTE AUTO 0.03 K/mm3 (0.00-0.10); IMMATURE GRAN PERCENT AUTO 0 % (0-1); LYMPHOCYTES ABSOLUTE AUTO 1.86 K/mm3 (0.84-5.20); LYMPHOCYTES PERCENT AUTO 18 % (21-46); MONOCYTES ABSOLUTE AUTO 0.37 K/mm3 (0.16-1.47); MONOCYTES PERCENT AUTO 4 % (4-13); Mean Corpuscular HGB 26.9 pg (26.0-34.0); Mean Corpuscular HGB Conc 30.5 g/dL (31.5-36.5); Mean Corpuscular Volume 88 fL (80-100); NEUTROPHILS ABSOLUTE AUTO 7.55 K/mm3 (1.96-9.15); NEUTROPHILS PERCENT AUTO 73 % (41-73); Platelet Count 279 K/mm3 (150-400); RDW Coefficient Variation 16.6 % (11.7-14.2); RDW Standard Deviation 53.7 fL (35.1-46.3)
== END 2019-12-31 11:50 | disposition home or self-care (01) ==
LOC: ER 09:37
PROVIDERS: Emergency Medicine
DX: D68.32 Hemorrhagic disorder due to extrinsic circulating anticoagulants (principal); R04.0 Epistaxis; T45.515A Adverse effect of anticoagulants, initial encounter; I25.2 Old myocardial infarction; I10 Essential (primary) hypertension; F17.210 Nicotine dependence, cigarettes, uncomplicated; Z79.01 Long term (current) use of anticoagulants; Z79.82 Long term (current) use of aspirin; Z79.02 Long term (current) use of antithrombotics/antiplatelets; Z95.5 Presence of coronary angioplasty implant and graft; Z88.5 Allergy status to narcotic agent; Z79.899 Other long term (current) drug therapy; Z87.442 Personal history of urinary calculi
CPT/HCPCS: 30903; 36415; 85025; 99283-25

== ENCOUNTER 2020-01-01 11:27 | Emergency (ER) | payer OTHER ==
[~2020-01-01] VITALS: Ht 162.6 cm; Wt 77.6 kg
== END 2020-01-01 20:42 | disposition home or self-care (01) ==
LOC: ER 11:27
DX: H10.9 Unspecified conjunctivitis (principal); I10 Essential (primary) hypertension; I25.2 Old myocardial infarction; F17.210 Nicotine dependence, cigarettes, uncomplicated; Z95.5 Presence of coronary angioplasty implant and graft; Z59.0 Homelessness; Z79.82 Long term (current) use of aspirin; Z79.899 Other long term (current) drug therapy; Z79.02 Long term (current) use of antithrombotics/antiplatelets; Z79.01 Long term (current) use of anticoagulants
CPT/HCPCS: 99282; A9270

== ENCOUNTER 2020-04-05 16:20 | Observation (INO) | payer OTHER ==
[~2020-04-05] VITALS: Ht 162.6 cm; Wt 75.4 kg
[~2020-04-05 16:20] MED LIST changes: -ASPI81CH PO; +Aspirin EC81 MG PO
[2020-04-05 17:16] LABS: Hematocrit 40.5 % (33.0-51.0); Hemoglobin 12.6 g/dL (11.5-16.0); Mean Corpuscular HGB Conc 31.1 g/dL (31.5-36.5); Mean Corpuscular Volume 84 fL (80-100); RDW Coefficient Variation 16.3 % (11.7-14.2); Red Blood Cell Count 4.84 M/mm3 (3.80-5.20); White Blood Cell Count 9.83 K/mm3 (4.00-11.30)
[2020-04-05 17:18] LABS: Mean Platelet Volume 11.8 fL (9.1-12.4)
[2020-04-05 17:23] LABS: Magnesium, Blood 1.7 mg/dL (1.6-2.4); Troponin I <0.015 ng/mL (0.000-0.040)
[2020-04-05 17:25] LABS: Alanine Aminotransfer (ALT/SGP 32 U/L (12-78); Albumin, Blood 3.7 g/dL (3.4-5.0); Albumin/Globulin Ratio 0.7 (0.8-1.8); Alk Phos 213 U/L (50-136); Anion Gap 7 mmol/L (6-16); Aspartate Aminotrans (AST/SGOT 17 U/L (12-37); Bilirubin, Total 0.3 mg/dL (0.1-1.0); Blood Urea Nitrogen 14 mg/dL (8-24); Bun/Creatinine Ratio 12.7 (12.0-20.0); CO2, Blood 23 mmol/L (21-32); Calcium, Blood 9.1 mg/dL (8.5-10.1); Chloride, Blood 109 mmol/L (98-108); Globulin, Blood 5.5 g/dL (2.2-4.0); Glomerular Filtration Rate 57 (60-); Glucose, Blood 98 mg/dL (70-99); Potassium, Blood 3.5 mmol/L (3.5-5.5); Sodium, Blood 139 mmol/L (136-145); Total Protein, Blood 9.2 g/dL (6.4-8.2)
[2020-04-05 17:35] LABS: BASOPHILS PERCENT MAN 0 % (0-2); EOSINOPHILS ABSOLUTE MAN 0.09 K/mm3 (0.00-0.68); EOSINOPHILS PERCENT MAN 1 % (0-6); LYMPHOCYTES ABSOLUTE MAN 4.71 K/mm3 (0.84-5.20); LYMPHOCYTES PERCENT MAN 48 % (21-46); MONOCYTES ABSOLUTE MAN 0.19 K/mm3 (0.16-1.47); MONOCYTES PERCENT MAN 2 % (4-13); NEUTROPHILS ABSOLUTE MAN 4.81 K/mm3 (1.96-9.15); SEG NEUTROPHILS PERCENT MAN 49 % (41-73); TOTAL CELLS COUNTED 100
[2020-04-06 04:09] LABS: Hematocrit 33.1 % (33.0-51.0); Hemoglobin 10.3 g/dL (11.5-16.0); Mean Corpuscular HGB 26.1 pg (26.0-34.0); Mean Corpuscular HGB Conc 31.1 g/dL (31.5-36.5); Mean Corpuscular Volume 84 fL (80-100); Mean Platelet Volume 11.3 fL (9.1-12.4); Platelet Count 316 K/mm3 (150-400); RDW Coefficient Variation 16.5 % (11.7-14.2); RDW Standard Deviation 51.2 fL (35.1-46.3); Red Blood Cell Count 3.94 M/mm3 (3.80-5.20); White Blood Cell Count 8.55 K/mm3 (4.00-11.30)
[2020-04-06 04:31] LABS: Anion Gap 5 mmol/L (6-16); Blood Urea Nitrogen 17 mg/dL (8-24); Bun/Creatinine Ratio 20.5 (12.0-20.0); CO2, Blood 23 mmol/L (21-32); Calcium, Blood 8.6 mg/dL (8.5-10.1); Chloride, Blood 113 mmol/L (98-108); Creatinine, Blood 0.83 mg/dL (0.40-1.00); Glomerular Filtration Rate >60 (60-); Glucose, Blood 97 mg/dL (70-99); Potassium, Blood 3.6 mmol/L (3.5-5.5); Sodium, Blood 141 mmol/L (136-145)
--- NOTE | 2020-04-06 05:42 | NUR ---
SHIFT SUMMARY PT ADMITTED FROM ED. ON CARDIZEM 5MG/HR UPON ARRIVAL. HR 70'S WITH STABLE BP. PT SUBSEQUENTLY TAKEN OFF OF CARDIZEM GTT, CONVERTED TO SR AND HAS REMAINED FOR REST OF SHIFT. VSS. ADMSSION PACKET COMPLETED. LR INFUSING PER EMAR. PT AXO. HAS DENIED CP THIS ADMISSION. PT CONTINUES ON RA. USES CALL LIGHT APPROPRIATELY. WILL CONTINUE TO MONITOR UNTIL SHIFT CHANGE.
--- NOTE | 2020-04-06 07:30 | NUR ---
ASSUMED CARE: PT RESTING IN BED BUT INDEPENDENT IN ROOM. ALERT AND ORIENTED, TALKING TO STAFF. DENIES CHEST PAIN AT THIS TIME. NSR ON TELE. NO ACUTE NEEDS OR CONCERNS.
--- NOTE | 2020-04-06 14:01 | NUR ---
PT GIVEN DISCHARGE INSTRUCTIONS ABOUT MEDS, SYMPTOMS TO WATCH FOR AND FOLLOW UP APPOINTMENTS. IVS DC'D WNL. PT DENIES FURTHER NEEDS OR CONCERNS. ESCORTED OUT VIA WHEEL CHAIR BY HOSPITAL STAFF
== END 2020-04-06 13:53 | disposition home or self-care (01) ==
LOC: ER 16:20 → PCU 16:21 → ICUW 20:41 → ER 20:41 → PCU 20:41 → ER 20:41 → PCU 20:51 → ICUW 20:51 → PCU 20:51
PROVIDERS: Emergency Medicine; ADMIT Internal Medicine
DX: I48.91 Unspecified atrial fibrillation (principal); I25.10 Atherosclerotic heart disease of native coronary artery without angina pectoris; I10 Essential (primary) hypertension; J44.9 Chronic obstructive pulmonary disease, unspecified; I25.2 Old myocardial infarction; F17.210 Nicotine dependence, cigarettes, uncomplicated; Z79.82 Long term (current) use of aspirin; Z79.01 Long term (current) use of anticoagulants; Z95.5 Presence of coronary angioplasty implant and graft; Z59.0 Homelessness
CPT/HCPCS: 36415; 71045; 80048; 80053; 83735; 84443; 84484; 85025; 85027; 93005; 93010; 93306; 96365; 96366; 96376; 99285-25; A9270; G0378; J7120

== ENCOUNTER 2020-04-10 11:32 | Inpatient (IN) | payer OTHER ==
[~2020-04-10] VITALS: Ht 162.6 cm; Wt 75.9 kg
[2020-04-10 12:53] LABS: BASOPHILS ABSOLUTE AUTO 0.07 K/mm3 (0.00-0.23); BASOPHILS PERCENT AUTO 1 % (0-2); EOSINOPHILS ABSOLUTE AUTO 0.31 K/mm3 (0.00-0.68); EOSINOPHILS PERCENT AUTO 3 % (0-6); Hematocrit 40.2 % (33.0-51.0); Hemoglobin 12.4 g/dL (11.5-16.0); IMMATURE GRAN ABSOLUTE AUTO 0.04 K/mm3 (0.00-0.10); IMMATURE GRAN PERCENT AUTO 0 % (0-1); LYMPHOCYTES ABSOLUTE AUTO 3.66 K/mm3 (0.84-5.20); LYMPHOCYTES PERCENT AUTO 32 % (21-46); MONOCYTES ABSOLUTE AUTO 0.65 K/mm3 (0.16-1.47); MONOCYTES PERCENT AUTO 6 % (4-13); Mean Corpuscular HGB 26.2 pg (26.0-34.0); Mean Corpuscular HGB Conc 30.8 g/dL (31.5-36.5); Mean Corpuscular Volume 85 fL (80-100); Mean Platelet Volume 11.9 fL (9.1-12.4); NEUTROPHILS ABSOLUTE AUTO 6.65 K/mm3 (1.96-9.15); NEUTROPHILS PERCENT AUTO 58 % (41-73); Platelet Count 399 K/mm3 (150-400); RDW Coefficient Variation 16.6 % (11.7-14.2); RDW Standard Deviation 51.1 fL (35.1-46.3); Red Blood Cell Count 4.74 M/mm3 (3.80-5.20); White Blood Cell Count 11.38 K/mm3 (4.00-11.30)
[2020-04-10 13:13] LABS: International Normalized Ratio 0.98; Prothrombin Time Results 10.5 Sec (9.7-11.5)
[2020-04-10 13:19] LABS: Alanine Aminotransfer (ALT/SGP 33 U/L (12-78); Albumin, Blood 3.3 g/dL (3.4-5.0); Albumin/Globulin Ratio 0.6 (0.8-1.8); Alk Phos 183 U/L (50-136); Anion Gap 6 mmol/L (6-16); Aspartate Aminotrans (AST/SGOT 43 U/L (12-37); Bilirubin, Total 0.5 mg/dL (0.1-1.0); Blood Urea Nitrogen 15 mg/dL (8-24); Bun/Creatinine Ratio 16.9 (12.0-20.0); CO2, Blood 22 mmol/L (21-32); Calcium, Blood 8.8 mg/dL (8.5-10.1); Chloride, Blood 110 mmol/L (98-108); Creatinine, Blood 0.89 mg/dL (0.40-1.00); Globulin, Blood 5.1 g/dL (2.2-4.0); Glomerular Filtration Rate >60 (60-); Glucose, Blood 101 mg/dL (70-99); Potassium, Blood 4.9 mmol/L (3.5-5.5); Sodium, Blood 138 mmol/L (136-145); Total Protein, Blood 8.4 g/dL (6.4-8.2); Troponin I <0.015 ng/mL (0.000-0.040)
[2020-04-10] MEDS ORDERED: METO50 PO (13:39)
[2020-04-10] MEDS ORDERED: METOPROLOL TART25 MG PO (19:27)
--- NOTE | 2020-04-10 22:27 | NUR ---
PT TO ROOM PCU 14. A/O X4. SBA UP IN ROOM. REP SOME SOB WITH EXERTION; NONE AT REST. CONT PULSE OX IN PLACE WITH O2 SATS AT 95% ON RA. LUNGS WITH EXP WHEEZES. PT REPORTS DRY COUGH WHICH IS BASELINE FOR HER. TELE IN PLACE WITH HR A-FIB @75 AVG PER SHELLFISH PROCESSING LABORER. PT ORIENTED TO ROOM AND INSTRUCTED TO USE CALL LIGHT WHEN SHE NEEDS TO GET OUT OF BED. PT C/O HEADACHE AND WAS MED WITH TYLENOL PER ORDERS. RESTING IN BED AT THIS TIME, WCTM.
[2020-04-11 02:26] LABS: BASOPHILS ABSOLUTE AUTO 0.07 K/mm3 (0.00-0.23); BASOPHILS PERCENT AUTO 1 % (0-2); EOSINOPHILS ABSOLUTE AUTO 0.33 K/mm3 (0.00-0.68); EOSINOPHILS PERCENT AUTO 4 % (0-6); Hematocrit 31.6 % (33.0-51.0); Hemoglobin 9.8 g/dL (11.5-16.0); IMMATURE GRAN ABSOLUTE AUTO 0.01 K/mm3 (0.00-0.10); IMMATURE GRAN PERCENT AUTO 0 % (0-1); LYMPHOCYTES ABSOLUTE AUTO 3.81 K/mm3 (0.84-5.20); LYMPHOCYTES PERCENT AUTO 43 % (21-46); MONOCYTES ABSOLUTE AUTO 0.59 K/mm3 (0.16-1.47); MONOCYTES PERCENT AUTO 7 % (4-13); Mean Corpuscular HGB 26.4 pg (26.0-34.0); Mean Corpuscular Volume 85 fL (80-100); NEUTROPHILS ABSOLUTE AUTO 4.01 K/mm3 (1.96-9.15); NEUTROPHILS PERCENT AUTO 46 % (41-73); Platelet Count 277 K/mm3 (150-400); RDW Coefficient Variation 16.4 % (11.7-14.2); RDW Standard Deviation 50.8 fL (35.1-46.3); Red Blood Cell Count 3.71 M/mm3 (3.80-5.20); White Blood Cell Count 8.82 K/mm3 (4.00-11.30)
[2020-04-11 02:42] LABS: Anion Gap 5 mmol/L (6-16); Blood Urea Nitrogen 17 mg/dL (8-24); CO2, Blood 25 mmol/L (21-32); Calcium, Blood 8.3 mg/dL (8.5-10.1); Chloride, Blood 113 mmol/L (98-108); Glomerular Filtration Rate >60 (60-); Glucose, Blood 95 mg/dL (70-99); Potassium, Blood 3.8 mmol/L (3.5-5.5); Sodium, Blood 143 mmol/L (136-145)
--- NOTE | 2020-04-11 03:33 | NUR ---
HEART RATE THIS RN NOTIFIED BY TELE MONITOR THAT PT'S HR INCREASED UP TO 150. PT UP TO BATHROOM AT THAT TIME. HR BACK TOWN TO 60'S WHEN BACK IN BED. PT STATES IT IS NORMAL FOR HER HR TO INCREASE WHEN UP AND GO BACK TO NORMAL RATE WHEN RESTING.
--- NOTE | 2020-04-11 04:30 | NUR ---
SHIFT SUMMARY PT WAS ADMITTED TO PCU ROOM 14 THIS SHIFT. SHE IS A/O X4 AND SBA IN ROOM UP TO BATHROOM. HAS BEEN UP TO VOID WITH YARN CARRIER ASSISTANCE. BIOX AND TELE IN USE OVERNIGHT. HR INCREASES WHEN PT IS UP, WHICH PT REPORTS IS NORMAL FOR HER. SHE HAS BEEN IN A-FIB PER ENTERPRISE RESOURCE PLANNER. SHE ALSO GETS SOB W/ EXERTION AND REPORTS MILD DIZZINESS WHEN STANDING UP "TOO FAST". NS @100 INFUSING OVERNIGHT PER ORDERS. PT IS RESTING IN BED AT THIS TIME WITH CALL LIGHT IN REACH.
--- NOTE | 2020-04-11 12:37 | NUR ---
CONVERSION TO SINUS RHYTHM PT CONVERTED SELF TO NSR AT 1155. DR. COKER NOTIFIED.
--- NOTE | 2020-04-11 16:26 | NUR ---
SHIFT SUMMARY PT CONVERTED HERSELF BACK TO NSR TODAY AT 1155. PT CURRENTLY NSR IN THE 70S PER DIRECTOR OF RESEARCH. PT STATES SHE CONTINUES TO FEEL CHEST DISCOMFORT. AWARE. PT EUDCATED ON PE'S. PT SOB WITH EXERTION, BUT ABLE TO WALK TO THE BATHROOM AND BACK WITHOUT ASSISTANCE. UPON RETURN FROM THE BATHROOM, PT HR INCREASED TO 106 THIS AFTERNOON. PRIOR TO CONVERTION PT WAS IN AFIB AND HR WOULD JUMP TO THE 140S WITH EXERTION. PT TAKING XARELTO ORDERED. VS REVIEWED & STABLE. TROPONINS REMAIN NEG. CONT PULSE OX IN PLACE. NO OTHER ACUTE CHANGES IN ASSESSMENT AT THIS TIME. PT RESTING IN BED. VISITOR AT BEDSIDE.
--- NOTE | 2020-04-11 22:17 | NUR ---
TRANSFER TO MEDICAL FLOOR REPORT GIVENT TO JESSA CRUZ (MED UNIT) AT 1015. PT A0X4. INDEPENDENT IN ROOM, DENIES DIZZINESS AND N0 SIGNS OF ORTHOSTATIC HYPOTENSION. PT ALSO DENIES CHEST PAIN, NUMBNESS AND TINGLING SENSATION. SHE REPORTS SOB ON EXERTION. PT TOLERATING RED DIET DENIES NAUSEA AND VOMITING. PT HAD A SMALL BM DURING MY SHIFT. SHE ALSO TOOK ALL HER NIGHT MEDS PRIOR TO TRANSFER. CALLED TELE, SHE IS ON NSR AT 90'S PER FEI. IV ON R AC PRESENT, PATENT. PT WAS TRANSFERRED VIA W/C BY EZEQUIEL.
--- NOTE | 2020-04-12 03:54 | NUR ---
AUTO PARTS SALESPERSON SUMMARY PT TRANSFERRED FROM PCU THIS SHIFT. RECEIVED REPORT FROM NANCY LOPEZ. PT A&OX4, ABLE TO MAKE NEEDS KNOWN, PLEASANT AND COOPERATIVE TO CARE. NO C/O PAIN OR ANY DISCOMFORT. DENIES CP, SOB OR N&V. PT ON CONT BIOX, SATS >92% IN RA, RESPS E/U. PT REPORTED THAT SHE EXPERIENCES SLIGHT SOB WHEN AMBULATING SHORT DISTANCES. PT SBA TO THE BATHROOM. PT CURRENTLY RESTING AT THIS TIME. BED AT LOWEST POSITION, CALL LIGHT WITHIN REACH.
[2020-04-12] MEDS ORDERED: XARELTO20 MG PO ×2 (12:00→12:02)
--- NOTE | 2020-04-12 13:25 | NUR ---
DISCHARGED: escorted pt in down to waiting family vehicle, REVIEWED stay, medications, discharge instructions and need for follow up appointments, pt acknowleged changes in home medications and presented a plan for aquiring a new medication, REMOVED: iv and tele, will send tele to pcu, pt stated she was pleased with stay at [facility] and enjoyed the people here
== END 2020-04-12 13:12 | disposition home or self-care (01) | DRG 175 ==
LOC: ER 11:32 → PCU 11:33 → MEDS 21:40 → PCU 21:47 → MEDS 04-11 22:21
PROVIDERS: Nurse Practitioner Acute Care; Physician Assistant; ADMIT Internal Medicine
DX: I26.09 Other pulmonary embolism with acute cor pulmonale (principal); Z79.82 Long term (current) use of aspirin; Z79.01 Long term (current) use of anticoagulants; I48.0 Paroxysmal atrial fibrillation; N92.0 Excessive and frequent menstruation with regular cycle; J44.9 Chronic obstructive pulmonary disease, unspecified; Z59.0 Homelessness; I25.10 Atherosclerotic heart disease of native coronary artery without angina pectoris; D64.9 Anemia, unspecified; N92.1 Excessive and frequent menstruation with irregular cycle; F17.210 Nicotine dependence, cigarettes, uncomplicated
CPT/HCPCS: 36415; 71260; 80048; 80053; 83880; 84484; 85025; 85379; 85610; 93005; 93010; 93971; 94762; 96361; 96374-59; 99285-25; A9270; G0378; J7030; J7120; Q9967

== ENCOUNTER 2020-12-16 16:59 | Emergency (ER) | payer OTHER ==
[~2020-12-16] VITALS: Ht 162.6 cm; Wt 72.6 kg
[~2020-12-16 16:59] MED LIST changes: +METOPROLOL TART25 MG PO; +XARELTO20 MG PO
[2020-12-16] MEDS ORDERED: COMBIVENT RESPIM4 G1 INH (21:54)
[2020-12-16] MEDS ORDERED: PRED20 PO (21:54)
[2020-12-16] MEDS ORDERED: DOXY100 PO (21:54)
== END 2020-12-16 22:08 | disposition home or self-care (01) ==
LOC: ER 16:59
DX: J44.1 Chronic obstructive pulmonary disease with (acute) exacerbation (principal); Z88.8 Allergy status to other drugs, medicaments and biological substances; Z79.899 Other long term (current) drug therapy; I10 Essential (primary) hypertension; I25.2 Old myocardial infarction; F17.210 Nicotine dependence, cigarettes, uncomplicated
CPT/HCPCS: 71046; 94640; 94644; 99284-25; A9270; J7512

== ENCOUNTER 2021-01-24 22:42 | Emergency (ER) | payer OTHER ==
[~2021-01-24] VITALS: Ht 162.6 cm; Wt 74.8 kg
[~2021-01-24 22:42] MED LIST changes: +COMBIVENT RESPIM4 G1 INH; +PRED20 PO
[2021-01-24 23:22] LABS: BASOPHILS ABSOLUTE AUTO 0.09 K/mm3 (0.00-0.23); BASOPHILS PERCENT AUTO 1 % (0-2); EOSINOPHILS ABSOLUTE AUTO 0.32 K/mm3 (0.00-0.68); EOSINOPHILS PERCENT AUTO 4 % (0-6); Hematocrit 22.9 % (33.0-51.0); Hemoglobin 6.4 g/dL (11.5-16.0); Mean Corpuscular HGB 19.2 pg (26.0-34.0); Mean Corpuscular HGB Conc 27.9 g/dL (31.5-36.5); Mean Corpuscular Volume 69 fL (80-100); Platelet Count 208 K/mm3 (150-400); RDW Coefficient Variation 21.1 % (11.7-14.2); RDW Standard Deviation 51.6 fL (35.1-46.3); Red Blood Cell Count 3.34 M/mm3 (3.80-5.20)
[2021-01-24 23:25] LABS: IMMATURE GRAN ABSOLUTE AUTO 0.02 K/mm3 (0.00-0.10); IMMATURE GRAN PERCENT AUTO 0 % (0-1); LYMPHOCYTES ABSOLUTE AUTO 3.32 K/mm3 (0.84-5.20); LYMPHOCYTES PERCENT AUTO 37 % (21-46); MONOCYTES PERCENT AUTO 6 % (4-13); NEUTROPHILS ABSOLUTE AUTO 4.85 K/mm3 (1.96-9.15); NEUTROPHILS PERCENT AUTO 53 % (41-73)
[2021-01-24 23:47] LABS: Alanine Aminotransfer (ALT/SGP 16 U/L (12-78); Albumin, Blood 2.8 g/dL (3.4-5.0); Albumin/Globulin Ratio 0.7 (0.8-1.8); Alk Phos 127 U/L (50-136); Anion Gap 7 mmol/L (6-16); Aspartate Aminotrans (AST/SGOT 17 U/L (12-37); Bilirubin, Total 0.3 mg/dL (0.1-1.0); Blood Urea Nitrogen 9 mg/dL (8-24); Bun/Creatinine Ratio 12.1 (12.0-20.0); CO2, Blood 22 mmol/L (21-32); Calcium, Blood 8.7 mg/dL (8.5-10.1); Chloride, Blood 112 mmol/L (98-108); Creatinine, Blood 0.75 mg/dL (0.40-1.00); Globulin, Blood 3.9 g/dL (2.2-4.0); Glomerular Filtration Rate >60 (60-); Glucose, Blood 122 mg/dL (70-99); Potassium, Blood 3.3 mmol/L (3.5-5.5); Sodium, Blood 141 mmol/L (136-145); Total Protein, Blood 6.7 g/dL (6.4-8.2); Troponin I <0.015 ng/mL (0.000-0.040)
[2021-01-25 00:12] LABS: Ethanol (Alcohol), Blood, Med <3 mg/dL; Magnesium, Blood 1.6 mg/dL (1.6-2.4)
[2021-01-25 00:31] LABS: International Normalized Ratio 1.1; Prothrombin Time Results 11.5 Sec (9.7-11.5)
[2021-01-25] MEDS ORDERED: Lopressor 25 mg25 MG PO (01:02)
[2021-01-25] MEDS ORDERED: MEDR10 PO (01:02)
== END 2021-01-25 03:43 | disposition home or self-care (01) ==
LOC: ER 22:42
PROVIDERS: Emergency Medicine
DX: I48.91 Unspecified atrial fibrillation (principal); D62 Acute posthemorrhagic anemia; I10 Essential (primary) hypertension; I25.2 Old myocardial infarction; J44.9 Chronic obstructive pulmonary disease, unspecified; F17.210 Nicotine dependence, cigarettes, uncomplicated; Z88.5 Allergy status to narcotic agent; Z79.899 Other long term (current) drug therapy; Z79.01 Long term (current) use of anticoagulants
CPT/HCPCS: 36415; 36430; 80053; 83605; 83690; 83735; 84484; 85025; 85610; 86850; 86900; 86901; 86923; 93005; 93010; 99285-25; A9270; G0480; J7030; P9016

== ENCOUNTER 2021-05-30 17:36 | Emergency (ER) | payer OTHER ==
[~2021-05-30] VITALS: Ht 162.6 cm; Wt 73.9 kg
[~2021-05-30 17:36] MED LIST changes: +Lopressor 25 mg25 MG PO; +MEDR10 PO
[2021-05-30 18:26] LABS: BASOPHILS PERCENT AUTO 1 % (0-2); EOSINOPHILS PERCENT AUTO 5 % (0-6); Hematocrit 34.6 % (33.0-51.0); Hemoglobin 9.7 g/dL (11.5-16.0); IMMATURE GRAN ABSOLUTE AUTO 0.01 K/mm3 (0.00-0.10); IMMATURE GRAN PERCENT AUTO 0 % (0-1); LYMPHOCYTES ABSOLUTE AUTO 3.61 K/mm3 (0.84-5.20); LYMPHOCYTES PERCENT AUTO 36 % (21-46); MONOCYTES ABSOLUTE AUTO 0.67 K/mm3 (0.16-1.47); MONOCYTES PERCENT AUTO 7 % (4-13); Mean Corpuscular HGB 20.3 pg (26.0-34.0); Mean Corpuscular Volume 72 fL (80-100); NEUTROPHILS ABSOLUTE AUTO 5.22 K/mm3 (1.96-9.15); NEUTROPHILS PERCENT AUTO 52 % (41-73); Platelet Count 302 K/mm3 (150-400); RDW Standard Deviation 53.5 fL (35.1-46.3); Red Blood Cell Count 4.78 M/mm3 (3.80-5.20); White Blood Cell Count 10.11 K/mm3 (4.00-11.30)
[2021-05-30 18:35] LABS: Mean Platelet Volume 11.2 fL (9.1-12.4)
[2021-05-30 18:41] LABS: Albumin, Blood 3.3 g/dL (3.4-5.0); Albumin/Globulin Ratio 0.8 (0.8-1.8); Bilirubin, Total 0.4 mg/dL (0.1-1.0); Bun/Creatinine Ratio 14.3 (12.0-20.0); Calcium, Blood 8.7 mg/dL (8.5-10.1); Creatinine, Blood 1.12 mg/dL (0.40-1.00); Globulin, Blood 4.3 g/dL (2.2-4.0); Potassium, Blood 3.9 mmol/L (3.5-5.5); Total Protein, Blood 7.6 g/dL (6.4-8.2)
== END 2021-05-30 21:11 | disposition home or self-care (01) ==
LOC: ER 17:36
PROVIDERS: Physician Assistant
DX: I48.91 Unspecified atrial fibrillation (principal); I10 Essential (primary) hypertension; I25.2 Old myocardial infarction; Z79.899 Other long term (current) drug therapy; F17.210 Nicotine dependence, cigarettes, uncomplicated
CPT/HCPCS: 36415; 71045; 80053; 84484; 85025; 93005; 93010; 96374; 99285-25; J7030

== ENCOUNTER 2021-05-31 18:11 | Emergency (ER) | payer OTHER ==
[~2021-05-31] VITALS: Ht 162.6 cm; Wt 73.9 kg
== END 2021-05-31 23:25 | disposition home or self-care (01) ==
LOC: ER 18:11
DX: I48.91 Unspecified atrial fibrillation (principal); J44.9 Chronic obstructive pulmonary disease, unspecified; F17.210 Nicotine dependence, cigarettes, uncomplicated; I10 Essential (primary) hypertension; I25.2 Old myocardial infarction; Z88.8 Allergy status to other drugs, medicaments and biological substances; Z79.899 Other long term (current) drug therapy
CPT/HCPCS: 36415; 84484; 93005; 93010; 99285-25

== ENCOUNTER 2021-07-26 20:12 | Emergency (ER) | payer OTHER ==
[~2021-07-26] VITALS: Ht 162.6 cm; Wt 77.1 kg
[2021-07-26] MEDS ORDERED: Veetids 500500 MG PO (22:51)
== END 2021-07-26 23:03 | disposition home or self-care (01) ==
LOC: ER 20:12
DX: J03.90 Acute tonsillitis, unspecified (principal); I10 Essential (primary) hypertension; I25.10 Atherosclerotic heart disease of native coronary artery without angina pectoris; J44.9 Chronic obstructive pulmonary disease, unspecified; F17.210 Nicotine dependence, cigarettes, uncomplicated; Z20.822 Contact with and (suspected) exposure to COVID-19; Z79.899 Other long term (current) drug therapy; Z88.8 Allergy status to other drugs, medicaments and biological substances; Z95.5 Presence of coronary angioplasty implant and graft
CPT/HCPCS: 36415; 84460; 87430; A9270

== ENCOUNTER 2021-10-28 22:17 | Emergency (ER) | payer OTHER ==
[~2021-10-28] VITALS: Ht 162.6 cm; Wt 73.9 kg
[2021-10-29] MEDS ORDERED: PRED20 PO (04:44)
[2021-10-29] MEDS ORDERED: ALBU90OI INH (04:44)
[2021-10-29] MEDS ORDERED: FLUT1DIS2 INH (04:44)
== END 2021-10-29 04:54 | disposition home or self-care (01) ==
LOC: ER 22:17
DX: J44.1 Chronic obstructive pulmonary disease with (acute) exacerbation (principal); I10 Essential (primary) hypertension; I25.2 Old myocardial infarction; Z87.891 Personal history of nicotine dependence; Z79.01 Long term (current) use of anticoagulants; Z79.899 Other long term (current) drug therapy
CPT/HCPCS: 71045; 94640; 94664; 99283-25; J7512

== ENCOUNTER 2022-01-24 19:04 | Emergency (ER) | payer OTHER ==
[~2022-01-24] VITALS: Ht 162.6 cm; Wt 72.6 kg
[~2022-01-24 19:04] MED LIST changes: +FLUT1DIS2 INH
[2022-01-24 20:05] LABS: BASOPHILS ABSOLUTE AUTO 0.06 K/mm3 (0.00-0.23); BASOPHILS PERCENT AUTO 1 % (0-2); EOSINOPHILS ABSOLUTE AUTO 0.23 K/mm3 (0.00-0.68); EOSINOPHILS PERCENT AUTO 3 % (0-6); Hematocrit 23.3 % (33.0-51.0); Hemoglobin 6.2 g/dL (11.5-16.0); IMMATURE GRAN ABSOLUTE AUTO 0.01 K/mm3 (0.00-0.10); IMMATURE GRAN PERCENT AUTO 0 % (0-1); LYMPHOCYTES ABSOLUTE AUTO 2.42 K/mm3 (0.84-5.20); LYMPHOCYTES PERCENT AUTO 35 % (21-46); MONOCYTES ABSOLUTE AUTO 0.41 K/mm3 (0.16-1.47); MONOCYTES PERCENT AUTO 6 % (4-13); Mean Corpuscular HGB 18.5 pg (26.0-34.0); Mean Corpuscular HGB Conc 26.6 g/dL (31.5-36.5); Mean Corpuscular Volume 69 fL (80-100); NEUTROPHILS ABSOLUTE AUTO 3.85 K/mm3 (1.96-9.15); NEUTROPHILS PERCENT AUTO 55 % (41-73); Platelet Count 165 K/mm3 (150-400); RDW Coefficient Variation 25.7 % (11.7-14.2); RDW Standard Deviation 61.1 fL (35.1-46.3); Red Blood Cell Count 3.36 M/mm3 (3.80-5.20); White Blood Cell Count 6.98 K/mm3 (4.00-11.30)
[2022-01-24 20:26] LABS: Albumin, Blood 3.2 g/dL (3.4-5.0); Albumin/Globulin Ratio 0.7 (0.8-1.8); Bilirubin, Total 0.4 mg/dL (0.1-1.0); Bun/Creatinine Ratio 18.4 (12.0-20.0); Creatinine, Blood 0.87 mg/dL (0.40-1.00); Globulin, Blood 4.3 g/dL (2.2-4.0); Magnesium, Blood 1.7 mg/dL (1.6-2.4); Potassium, Blood 3.3 mmol/L (3.5-5.5); Total Protein, Blood 7.5 g/dL (6.4-8.2)
[2022-01-24 21:28] LABS: International Normalized Ratio 1.22; Prothrombin Time Results 12.6 Sec (9.7-11.5)
== END 2022-01-25 00:03 | disposition home or self-care (01) ==
LOC: ER 19:04
PROVIDERS: Emergency Medicine; Student in an Organized Health Care Education/Training Program
DX: I48.91 Unspecified atrial fibrillation (principal); D64.9 Anemia, unspecified; I10 Essential (primary) hypertension; J44.9 Chronic obstructive pulmonary disease, unspecified; I25.2 Old myocardial infarction; F17.210 Nicotine dependence, cigarettes, uncomplicated; Z79.899 Other long term (current) drug therapy; Z88.8 Allergy status to other drugs, medicaments and biological substances; Z79.52 Long term (current) use of systemic steroids; Z79.02 Long term (current) use of antithrombotics/antiplatelets; Z95.5 Presence of coronary angioplasty implant and graft
CPT/HCPCS: 36415; 71045; 80053; 83690; 83735; 83880; 84484; 85025; 85610; 86850; 86900; 86901; 86923; 93005; 93010; A9270; J7030; P9016

== ENCOUNTER → 2022-04-29 | Outpatient (CLI) | payer OTHER ==
[~2022-04-29] MED LIST changes: +ATOR80 PO
[2022-04-29 19:30] LABS: BASOPHILS ABSOLUTE AUTO 0.08 K/mm3 (0.00-0.23); BASOPHILS PERCENT AUTO 1 % (0-2); EOSINOPHILS PERCENT AUTO 4 % (0-6); Hematocrit 29.4 % (33.0-51.0); Hemoglobin 8.1 g/dL (11.5-16.0); IMMATURE GRAN ABSOLUTE AUTO 0.02 K/mm3 (0.00-0.10); IMMATURE GRAN PERCENT AUTO 0 % (0-1); LYMPHOCYTES ABSOLUTE AUTO 2.92 K/mm3 (0.84-5.20); LYMPHOCYTES PERCENT AUTO 35 % (21-46); MONOCYTES ABSOLUTE AUTO 0.61 K/mm3 (0.16-1.47); MONOCYTES PERCENT AUTO 7 % (4-13); Mean Corpuscular HGB 20.9 pg (26.0-34.0); Mean Corpuscular HGB Conc 27.6 g/dL (31.5-36.5); Mean Corpuscular Volume 76 fL (80-100); NEUTROPHILS ABSOLUTE AUTO 4.35 K/mm3 (1.96-9.15); NEUTROPHILS PERCENT AUTO 53 % (41-73); Platelet Count 408 K/mm3 (150-400); RDW Coefficient Variation 25.4 % (11.7-14.2); RDW Standard Deviation 66.6 fL (35.1-46.3); Red Blood Cell Count 3.87 M/mm3 (3.80-5.20); White Blood Cell Count 8.28 K/mm3 (4.00-11.30)
== END | disposition home or self-care (01) ==
LOC: LAB 16:00 → LAB SHORT 16:00
PROVIDERS: Nurse Practitioner Family
DX: D50.0 Iron deficiency anemia secondary to blood loss (chronic) (principal); D64.9 Anemia, unspecified; N92.0 Excessive and frequent menstruation with regular cycle
CPT/HCPCS: 85025

== ENCOUNTER → 2022-06-07 | Outpatient (CLI) | payer OTHER ==
[2022-06-10 16:07] LABS: HPV 16 Negative (Negative); HPV 18 Negative (Negative); HPV OTHER HR TYPES Negative (Negative)
== END ==
LOC: LAB 17:48 → LAB SHORT 17:48
PROVIDERS: Family Medicine
DX: Z12.4 Encounter for screening for malignant neoplasm of cervix (principal)
CPT/HCPCS: 87624; G0145

== ENCOUNTER 2022-10-23 19:46 | Emergency (ER) | payer OTHER ==
[~2022-10-23] VITALS: Ht 162.6 cm; Wt 72.6 kg
[2022-10-23 20:17] LABS: BASOPHILS ABSOLUTE AUTO 0.07 K/mm3 (0.00-0.23); BASOPHILS PERCENT AUTO 1 % (0-2); EOSINOPHILS ABSOLUTE AUTO 0.25 K/mm3 (0.00-0.68); EOSINOPHILS PERCENT AUTO 2 % (0-6); Hematocrit 44.3 % (33.0-51.0); IMMATURE GRAN ABSOLUTE AUTO 0.04 K/mm3 (0.00-0.10); IMMATURE GRAN PERCENT AUTO 0 % (0-1); LYMPHOCYTES ABSOLUTE AUTO 3.76 K/mm3 (0.84-5.20); LYMPHOCYTES PERCENT AUTO 33 % (21-46); MONOCYTES ABSOLUTE AUTO 0.59 K/mm3 (0.16-1.47); MONOCYTES PERCENT AUTO 5 % (4-13); Mean Corpuscular HGB 32.7 pg (26.0-34.0); Mean Corpuscular HGB Conc 33.9 g/dL (31.5-36.5); Mean Corpuscular Volume 97 fL (80-100); Mean Platelet Volume 11.5 fL (9.1-12.4); NEUTROPHILS ABSOLUTE AUTO 6.75 K/mm3 (1.96-9.15); NEUTROPHILS PERCENT AUTO 59 % (41-73); Platelet Count 331 K/mm3 (150-400); RDW Standard Deviation 56.8 fL (35.1-46.3); Red Blood Cell Count 4.59 M/mm3 (3.80-5.20); White Blood Cell Count 11.46 K/mm3 (4.00-11.30)
[2022-10-23 20:38] LABS: Albumin, Blood 3.4 g/dL (3.4-5.0); Albumin/Globulin Ratio 0.8 (0.8-1.8); Bilirubin, Total 0.3 mg/dL (0.1-1.0); Bun/Creatinine Ratio 12.9 (12.0-20.0); Calcium, Blood 9.2 mg/dL (8.5-10.1); Creatinine, Blood 0.86 mg/dL (0.40-1.00); Globulin, Blood 4.2 g/dL (2.2-4.0); Magnesium, Blood 1.9 mg/dL (1.6-2.4); Potassium, Blood 3.7 mmol/L (3.5-5.5); Total Protein, Blood 7.6 g/dL (6.4-8.2)
[2022-10-23 21:32] LABS: Thyroid Stimulating Hormone 0.965 uIU/mL (0.360-4.800)
[2022-10-24 00:10] VITALS: BP 129/86
== END 2022-10-24 00:56 | disposition home or self-care (01) ==
LOC: ER 19:46
PROVIDERS: Student in an Organized Health Care Education/Training Program
DX: I48.91 Unspecified atrial fibrillation (principal); E86.0 Dehydration; F17.210 Nicotine dependence, cigarettes, uncomplicated; Z95.5 Presence of coronary angioplasty implant and graft; Z88.8 Allergy status to other drugs, medicaments and biological substances; Z79.51 Long term (current) use of inhaled steroids; Z79.899 Other long term (current) drug therapy; Z87.442 Personal history of urinary calculi; J44.9 Chronic obstructive pulmonary disease, unspecified; I25.2 Old myocardial infarction; Z86.711 Personal history of pulmonary embolism; Z79.01 Long term (current) use of anticoagulants
CPT/HCPCS: 71046; 80053; 83735; 84439; 84443; 85025; 93005; 93010; 96365; 96366; 96375; 99285-25; A9270; J3475; J7030

== ENCOUNTER 2023-03-15 06:25 | Emergency (ER) | payer OTHER ==
[~2023-03-15] VITALS: Ht 162.6 cm; Wt 73.9 kg
[2023-03-15 06:40] VITALS: BP 128/90
[2023-03-15 07:25] LABS: Source, Urine Clean Catch
[2023-03-15 07:26] LABS: BASOPHILS ABSOLUTE AUTO 0.12 K/mm3 (0.00-0.23); BASOPHILS PERCENT AUTO 1 % (0-2); EOSINOPHILS ABSOLUTE AUTO 0.43 K/mm3 (0.00-0.68); EOSINOPHILS PERCENT AUTO 4 % (0-6); Hematocrit 39.3 % (33.0-51.0); Hemoglobin 12.9 g/dL (11.5-16.0); Mean Corpuscular HGB 28.7 pg (26.0-34.0); Mean Corpuscular HGB Conc 32.8 g/dL (31.5-36.5); Mean Corpuscular Volume 88 fL (80-100); Mean Platelet Volume 11.1 fL (9.1-12.4); Platelet Count 391 K/mm3 (150-400); RDW Coefficient Variation 19.8 % (11.7-14.2); RDW Standard Deviation 63.9 fL (35.1-46.3); Red Blood Cell Count 4.49 M/mm3 (3.80-5.20); White Blood Cell Count 10.51 K/mm3 (4.00-11.30)
[2023-03-15 07:44] LABS: IMMATURE GRAN ABSOLUTE AUTO 0.03 K/mm3 (0.00-0.10); IMMATURE GRAN PERCENT AUTO 0 % (0-1); LYMPHOCYTES ABSOLUTE AUTO 5.12 K/mm3 (0.84-5.20); LYMPHOCYTES PERCENT AUTO 49 % (21-46); MONOCYTES ABSOLUTE AUTO 0.68 K/mm3 (0.16-1.47); MONOCYTES PERCENT AUTO 7 % (4-13); NEUTROPHILS ABSOLUTE AUTO 4.13 K/mm3 (1.96-9.15); NEUTROPHILS PERCENT AUTO 39 % (41-73)
[2023-03-15 07:49] LABS: Albumin, Blood 3.2 g/dL (3.4-5.0); Albumin/Globulin Ratio 0.7 (0.8-1.8); Bilirubin, Total 0.4 mg/dL (0.1-1.0); Bun/Creatinine Ratio 7.2 (12.0-20.0); Calcium, Blood 8.5 mg/dL (8.5-10.1); Creatinine, Blood 0.97 mg/dL (0.40-1.00); Globulin, Blood 4.4 g/dL (2.2-4.0); Potassium, Blood 3.9 mmol/L (3.5-5.5); Total Protein, Blood 7.6 g/dL (6.4-8.2)
[2023-03-15 08:19] LABS: Appearance, Urine Hazy (Clear); Bilirubin, Urine Neg (Neg); Blood, Urine 4+ (Neg); Color, Urine Yellow (P-Yellow); Glucose Qualitative, Urine Neg (Neg); Ketones, Urine Neg (Neg); Leukocyte Esterase, Urine 3+ (Neg); Nitrite, Urine Neg (Neg); Protein, Urine Neg (Neg); Urobilinogen, Urine NORM (Normal)
[2023-03-15 08:36] LABS: Bacteria Mod /hpf; Squamous Epithelial Cells Few /hpf (Few)
[2023-03-15 08:57] LABS: U Amphetamine Screen Not Detected; U Barbituate Screen Not Detected; U Benzodiazapine Screen Not Detected; U Buprenorphine Screen Not Detected; U Cannabinoids Screen Not Detected; U Cocaine Screen Not Detected; U Methadone Screen Not Detected; U Methamphetamine Screen Not Detected; U Opiates Screen Not Detected; U Oxycodone Screen Not Detected; U Phencyclidine Screen Not Detected
[2023-03-15] MEDS ORDERED: CEPH500 PO (16:34)
== END 2023-03-15 16:48 | disposition home or self-care (01) ==
LOC: ER 06:25
PROVIDERS: Physician Assistant
DX: R45.851 Suicidal ideations (principal); F10.129 Alcohol abuse with intoxication, unspecified; R82.998 Other abnormal findings in urine; R74.8 Abnormal levels of other serum enzymes; I10 Essential (primary) hypertension; I25.2 Old myocardial infarction; J44.9 Chronic obstructive pulmonary disease, unspecified; I48.91 Unspecified atrial fibrillation; F17.210 Nicotine dependence, cigarettes, uncomplicated; Z63.4 Disappearance and death of family member; Z88.8 Allergy status to other drugs, medicaments and biological substances; Z79.01 Long term (current) use of anticoagulants; Z79.51 Long term (current) use of inhaled steroids; Z79.899 Other long term (current) drug therapy
CPT/HCPCS: 36415; 80053; 81001; 85025; 93005; 93010; 99285-25; A9270

== ENCOUNTER → 2023-04-08 | Outpatient (CLI) | payer OTHER ==
[2023-04-08 15:22] LABS: Percent Saturation 10.6 % (15.0-50.0)
== END | disposition home or self-care (01) ==
LOC: LAB SHORT 13:14 → LAB 13:14
PROVIDERS: Nurse Practitioner Family
DX: R53.83 Other fatigue (principal)
CPT/HCPCS: 82728; 83540; 83550

== ENCOUNTER 2023-08-05 18:36 | Emergency (ER) | payer OTHER ==
[~2023-08-05] VITALS: Ht 162.6 cm; Wt 71.7 kg
[2023-08-05 19:10] LABS: BASOPHILS ABSOLUTE AUTO 0.08 K/mm3 (0.00-0.23); BASOPHILS PERCENT AUTO 1 % (0-2); EOSINOPHILS ABSOLUTE AUTO 0.26 K/mm3 (0.00-0.68); EOSINOPHILS PERCENT AUTO 3 % (0-6); Hematocrit 34.8 % (33.0-51.0); IMMATURE GRAN ABSOLUTE AUTO 0.03 K/mm3 (0.00-0.10); IMMATURE GRAN PERCENT AUTO 0 % (0-1); LYMPHOCYTES ABSOLUTE AUTO 3.64 K/mm3 (0.84-5.20); LYMPHOCYTES PERCENT AUTO 36 % (21-46); MONOCYTES ABSOLUTE AUTO 0.66 K/mm3 (0.16-1.47); MONOCYTES PERCENT AUTO 7 % (4-13); Mean Corpuscular HGB 28.2 pg (26.0-34.0); Mean Corpuscular HGB Conc 31.6 g/dL (31.5-36.5); Mean Corpuscular Volume 89 fL (80-100); Mean Platelet Volume 11.4 fL (9.1-12.4); NEUTROPHILS ABSOLUTE AUTO 5.48 K/mm3 (1.96-9.15); NEUTROPHILS PERCENT AUTO 54 % (41-73); Platelet Count 335 K/mm3 (150-400); RDW Coefficient Variation 15.3 % (11.7-14.2); White Blood Cell Count 10.15 K/mm3 (4.00-11.30)
[2023-08-05 19:31] LABS: Albumin, Blood 2.9 g/dL (3.4-5.0); Albumin/Globulin Ratio 0.7 (0.8-1.8); Bilirubin, Total 0.5 mg/dL (0.1-1.0); Bun/Creatinine Ratio 14.3 (12.0-20.0); Calcium, Blood 8.5 mg/dL (8.5-10.1); Creatinine, Blood 1.12 mg/dL (0.40-1.00); Potassium, Blood 3.9 mmol/L (3.5-5.5); Total Protein, Blood 6.9 g/dL (6.4-8.2)
[2023-08-05 21:00] VITALS: BP 120/82
== END 2023-08-05 21:15 | disposition home or self-care (01) ==
LOC: ER 18:36
PROVIDERS: Physician Assistant
DX: I48.0 Paroxysmal atrial fibrillation (principal); Z88.8 Allergy status to other drugs, medicaments and biological substances; Z79.899 Other long term (current) drug therapy; I10 Essential (primary) hypertension; I25.2 Old myocardial infarction; J44.9 Chronic obstructive pulmonary disease, unspecified; F17.210 Nicotine dependence, cigarettes, uncomplicated; I25.10 Atherosclerotic heart disease of native coronary artery without angina pectoris; I51.7 Cardiomegaly
CPT/HCPCS: 80053; 84484; 85025; 93005; 93010; 93306; 99285-25

== ENCOUNTER 2024-02-09 12:30 | Emergency (ER) | payer OTHER ==
[~2024-02-09] VITALS: Ht 162.6 cm; Wt 72.6 kg
[2024-02-09 14:18] LABS: Albumin/Globulin Ratio 0.7 (0.8-1.8); Bilirubin, Total 0.2 mg/dL (0.1-1.0); Bun/Creatinine Ratio 13.3 (12.0-20.0); Creatinine, Blood 0.83 mg/dL (0.40-1.00); Globulin, Blood 4.5 g/dL (2.2-4.0); Potassium, Blood 3.6 mmol/L (3.5-5.5); Total Protein, Blood 7.5 g/dL (6.4-8.2)
[2024-02-09 14:33] LABS: BASOPHILS ABSOLUTE AUTO 0.08 K/mm3 (0.00-0.23); BASOPHILS PERCENT AUTO 1 % (0-2); EOSINOPHILS ABSOLUTE AUTO 0.19 K/mm3 (0.00-0.68); EOSINOPHILS PERCENT AUTO 2 % (0-6); Hematocrit 30.3 % (33.0-51.0); IMMATURE GRAN ABSOLUTE AUTO 0.03 K/mm3 (0.00-0.10); IMMATURE GRAN PERCENT AUTO 0 % (0-1); LYMPHOCYTES ABSOLUTE AUTO 2.52 K/mm3 (0.84-5.20); LYMPHOCYTES PERCENT AUTO 24 % (21-46); MONOCYTES ABSOLUTE AUTO 0.77 K/mm3 (0.16-1.47); MONOCYTES PERCENT AUTO 7 % (4-13); Mean Corpuscular HGB 23.4 pg (26.0-34.0); Mean Corpuscular HGB Conc 29.7 g/dL (31.5-36.5); Mean Corpuscular Volume 79 fL (80-100); Mean Platelet Volume 11.6 fL (9.1-12.4); NEUTROPHILS PERCENT AUTO 66 % (41-73); Platelet Count 410 K/mm3 (150-400); RDW Coefficient Variation 18.8 % (11.7-14.2); RDW Standard Deviation 53.8 fL (35.1-46.3); Red Blood Cell Count 3.84 M/mm3 (3.80-5.20); White Blood Cell Count 10.69 K/mm3 (4.00-11.30)
[2024-02-09 15:48] LABS: Percent Saturation 4.1 % (15.0-50.0)
[2024-02-09 16:00] VITALS: BP 113/69
[2024-02-09] MEDS ORDERED: ONE-A-DAY PREN1 EAC1 PO (16:16)
== END 2024-02-09 17:34 | disposition home or self-care (01) ==
LOC: ER 12:30
PROVIDERS: Emergency Medicine; Physician Assistant
DX: I48.0 Paroxysmal atrial fibrillation (principal); D50.9 Iron deficiency anemia, unspecified; I10 Essential (primary) hypertension; I25.2 Old myocardial infarction; J44.9 Chronic obstructive pulmonary disease, unspecified; F17.210 Nicotine dependence, cigarettes, uncomplicated; Z79.899 Other long term (current) drug therapy; Z79.51 Long term (current) use of inhaled steroids; Z88.5 Allergy status to narcotic agent; Z95.5 Presence of coronary angioplasty implant and graft
CPT/HCPCS: 71046; 80053; 82728; 83540; 83550; 84484; 85025; 85379; 93005; 93010; 99285-25

== ENCOUNTER 2024-06-17 20:48 | Inpatient (IN) | payer OTHER ==
[~2024-06-17] VITALS: Ht 162.6 cm; Wt 73.9 kg
[~2024-06-17 20:48] MED LIST changes: +ONE-A-DAY PREN1 EAC1 PO
[2024-06-17 21:49] LABS: BASOPHILS ABSOLUTE AUTO 0.09 K/mm3 (0.00-0.23); BASOPHILS PERCENT AUTO 1 % (0-2); EOSINOPHILS ABSOLUTE AUTO 0.29 K/mm3 (0.00-0.68); EOSINOPHILS PERCENT AUTO 4 % (0-6); Hematocrit 25.4 % (33.0-51.0); Hemoglobin 7.1 g/dL (11.5-16.0); IMMATURE GRAN ABSOLUTE AUTO 0.01 K/mm3 (0.00-0.10); IMMATURE GRAN PERCENT AUTO 0 % (0-1); LYMPHOCYTES ABSOLUTE AUTO 2.94 K/mm3 (0.84-5.20); LYMPHOCYTES PERCENT AUTO 39 % (21-46); MONOCYTES ABSOLUTE AUTO 0.55 K/mm3 (0.16-1.47); MONOCYTES PERCENT AUTO 7 % (4-13); Mean Corpuscular HGB 20.4 pg (26.0-34.0); Mean Corpuscular Volume 73 fL (80-100); Mean Platelet Volume 10.9 fL (9.1-12.4); NEUTROPHILS ABSOLUTE AUTO 3.58 K/mm3 (1.96-9.15); NEUTROPHILS PERCENT AUTO 48 % (41-73); Platelet Count 302 K/mm3 (150-400); RDW Coefficient Variation 20.1 % (11.7-14.2); RDW Standard Deviation 52.5 fL (35.1-46.3); Red Blood Cell Count 3.48 M/mm3 (3.80-5.20); White Blood Cell Count 7.46 K/mm3 (4.00-11.30)
[2024-06-17 22:17] LABS: Albumin/Globulin Ratio 0.7 (0.8-1.8); Bilirubin, Total 0.4 mg/dL (0.1-1.0); Calcium, Blood 8.1 mg/dL (8.5-10.1); Creatinine, Blood 0.93 mg/dL (0.40-1.00); Globulin, Blood 4.2 g/dL (2.2-4.0); Potassium, Blood 3.8 mmol/L (3.5-5.5); Total Protein, Blood 7.2 g/dL (6.4-8.2)
[2024-06-18] MEDS ORDERED: NS 1,000 ML IV ONE (01:00)
[2024-06-18 01:17] LABS: D-Dimer, Quantitative 0.41 mg/L FEU (0.00-0.52); International Normalized Ratio 1.17; Prothrombin Time Results 12.4 Sec (9.7-11.5)
[2024-06-18] MEDS ORDERED: Acetaminophen 325 MG TABLET PO PRN (04:45)
[2024-06-18] MEDS ORDERED: Ondansetron HCl 2 MG / ML 2ML Vial IV PRN (04:45)
[2024-06-18 08:08] LABS: Hematocrit 28.1 % (33.0-51.0); Hemoglobin 8.3 g/dL (11.5-16.0)
[2024-06-18 11:33] LABS: IMMATURE RETIC FRACTION 34.6 % (2.3-16.0); RETIC HGB EQUIVALENT 17.3 pg (28.20-36.60); RETICULOCYTE ABSOLUTE 0.0437 M/mm3 (0.0200-0.1100); RETICULOCYTE COUNT PERCENT 1.21 % (0.50-2.50)
[2024-06-18 11:48] LABS: Percent Saturation 15.3 % (15.0-50.0)
[2024-06-18] MEDS ORDERED: Metoprolol Tartrate 25 MG Tab PO SCH (13:00)
[2024-06-18 16:16] LABS: Hematocrit 28.4 % (33.0-51.0); Hemoglobin 8.3 g/dL (11.5-16.0)
[2024-06-18 16:23] VITALS: BP 126/65
[2024-06-18] MEDS ORDERED: COMBIVENT RESPIM4 G1 INH (16:26)
[2024-06-18] MEDS ORDERED: Mometasone/Formoterol MDI 200/5 mcg 13 GM INH SCH (16:45)
[2024-06-18] MEDS ORDERED: Albuterol 2.5 MG/3 ML VIAL INH PRN (16:45)
[2024-06-18 19:39] VITALS: BP 110/60
[2024-06-18] MEDS ORDERED: Rivaroxaban 10 MG Tab PO SCH (21:00)
[2024-06-18 23:06] LABS: Hematocrit 27.7 % (33.0-51.0); Hemoglobin 8.3 g/dL (11.5-16.0)
[2024-06-19 04:24] VITALS: BP 107/82
--- NOTE | 2024-06-19 04:51 | NUR ---
SHIFT SUMMARY: PT AOX4 IND IN THE ROOM. PT CALLS APPROPRIATELY AND IS ABLE TO MAKE NEEDS KNOWN. TOLERATING MEDICATIONS WELL, AND SLEPT THROUGH MOST OF THE NIGHT. PT DENIES ANY SOB, OR CP. STATES THAT THE FLOW HAS BEEN ABOUT THE SAME NIGHT BEFORE BUT SHE HASNT BEEN MOVING MUCH. NO ACUTE EVENTS OVERNIGHT. PT IN BED SLEEPING, BED IN LOWEST POSITION, CALL LIGHT IN REACH. CONTINUING CARE.
[2024-06-19 08:01] VITALS: BP 103/75
[2024-06-19] MEDS ORDERED: Atorvastatin 40 MG Tab PO SCH (09:00)
[2024-06-19 09:04] LABS: Hematocrit 29.8 % (33.0-51.0); Hemoglobin 8.7 g/dL (11.5-16.0)
[2024-06-19] MEDS ORDERED: Metoprolol Tartrate 25 MG Tab PO ONE (10:40)
[2024-06-19] MEDS ORDERED: MASOPHEN325 M3 PO (12:15)
[2024-06-19] MEDS ORDERED: DULERA 200 MCG-13 GM INH (12:15)
--- NOTE | 2024-06-19 14:11 | NUR ---
PATIENT D/C'D TO HOME VIA [facility]. DC INSTRUCTIONS AND EDUCATION DISUSSED WITH PATIENT AND COPY PROVIDED. PATIENT DENIES ANY FURTHER QUESTIONS OR CONCERNS. HARD SCRIPT FOR LABS ON 06/21 GIVEN TO PATIENT.
== END 2024-06-19 13:49 | disposition home or self-care (01) | DRG 812 ==
LOC: ER 20:48 → ERHOLD 22:20 → ER 06-18 04:43 → MEDS 06-18 14:48 → ERHOLD 06-18 14:49 → MEDS 06-18 16:10 → ERHOLD 06-18 16:10 → MEDS 06-19 13:49
PROVIDERS: Student in an Organized Health Care Education/Training Program; ADMIT Student in an Organized Health Care Education/Training Program
PROC: 30233N1 Transfusion of Nonautologous Red Blood Cells into Peripheral Vein, Percutaneous Approach (ICD-10-PCS; principal; 2024-06-18)
DX: D62 Acute posthemorrhagic anemia (principal); I48.20 Chronic atrial fibrillation, unspecified; I25.10 Atherosclerotic heart disease of native coronary artery without angina pectoris; J44.9 Chronic obstructive pulmonary disease, unspecified; I10 Essential (primary) hypertension; N92.0 Excessive and frequent menstruation with regular cycle; N84.0 Polyp of corpus uteri; D25.9 Leiomyoma of uterus, unspecified; Z96.0 Presence of urogenital implants; F17.200 Nicotine dependence, unspecified, uncomplicated; I25.2 Old myocardial infarction; Z86.711 Personal history of pulmonary embolism; Z79.01 Long term (current) use of anticoagulants; Z88.8 Allergy status to other drugs, medicaments and biological substances; Z79.51 Long term (current) use of inhaled steroids; Z95.5 Presence of coronary angioplasty implant and graft
CPT/HCPCS: 36415; 36430; 71046; 76830; 76856; 80053; 82607; 82728; 82746; 82947; 83540; 83550; 83880; 84484; 85014; 85018; 85025; 85045; 85379; 85610; 85730; 86850; 86900; 86901; 86923; 93005; 93010; 94640; 94664; 94762; 99285-25; A9270; G0378; J7030; P9016

== ENCOUNTER → 2024-06-25 | Outpatient (CLI) | payer OTHER ==
[~2024-06-25] MED LIST changes: +DULERA 200 MCG-13 GM INH; +MASOPHEN325 M3 PO
== END | disposition home or self-care (01) ==
LOC: LAB SHORT 07:34 → LAB 07:34
DX: N93.8 Other specified abnormal uterine and vaginal bleeding (principal)
CPT/HCPCS: 88305

== ENCOUNTER → 2024-06-25 | Outpatient (CLI) | payer OTHER ==
[2024-06-25 19:26] LABS: BASOPHILS ABSOLUTE AUTO 0.09 K/mm3 (0.00-0.23); BASOPHILS PERCENT AUTO 1 % (0-2); EOSINOPHILS ABSOLUTE AUTO 0.28 K/mm3 (0.00-0.68); EOSINOPHILS PERCENT AUTO 3 % (0-6); Hematocrit 29.2 % (33.0-51.0); Hemoglobin 8.3 g/dL (11.5-16.0); IMMATURE GRAN ABSOLUTE AUTO 0.04 K/mm3 (0.00-0.10); IMMATURE GRAN PERCENT AUTO 0 % (0-1); LYMPHOCYTES ABSOLUTE AUTO 2.57 K/mm3 (0.84-5.20); LYMPHOCYTES PERCENT AUTO 28 % (21-46); MONOCYTES ABSOLUTE AUTO 0.57 K/mm3 (0.16-1.47); MONOCYTES PERCENT AUTO 6 % (4-13); Mean Corpuscular HGB 22.7 pg (26.0-34.0); Mean Corpuscular HGB Conc 28.4 g/dL (31.5-36.5); Mean Corpuscular Volume 80 fL (80-100); NEUTROPHILS ABSOLUTE AUTO 5.55 K/mm3 (1.96-9.15); NEUTROPHILS PERCENT AUTO 61 % (41-73); Platelet Count 295 K/mm3 (150-400); RDW Coefficient Variation 23.3 % (11.7-14.2); RDW Standard Deviation 65.3 fL (35.1-46.3); Red Blood Cell Count 3.66 M/mm3 (3.80-5.20)
[2024-06-25 19:27] LABS: Mean Platelet Volume 12.2 fL (9.1-12.4)
[2024-06-25 19:57] LABS: Percent Saturation 3.1 % (15.0-50.0)
[2024-07-07 10:30] LABS: HPV GENOTYPE 16 BY TMA Not Detected; HPV GENOTYPE 18/45 BY TMA Not Detected; HPV HIGH RISK BY TMA Detected; HPV SOURCE Cervical/Vag; HPVG SOURCE Cervical/Vag
== END ==
LOC: LAB SHORT 16:12 → LAB 16:12
PROVIDERS: Obstetrics & Gynecology
DX: Z01.419 Encounter for gynecological examination (general) (routine) without abnormal findings (principal); N93.8 Other specified abnormal uterine and vaginal bleeding
CPT/HCPCS: 36415; 82728; 83540; 83550; 85025; 87624; 87625; G0123

== ENCOUNTER 2024-09-03 16:06 | Emergency (ER) | payer OTHER ==
[~2024-09-03] VITALS: Ht 162.6 cm; Wt 73.9 kg
[2024-09-03 16:52] LABS: Source, Urine Clean Catch
[2024-09-03 16:56] LABS: BASOPHILS ABSOLUTE AUTO 0.04 K/mm3 (0.00-0.23); BASOPHILS PERCENT AUTO 0 % (0-2); EOSINOPHILS ABSOLUTE AUTO 0.17 K/mm3 (0.00-0.68); EOSINOPHILS PERCENT AUTO 1 % (0-6); Hematocrit 38.2 % (33.0-51.0); Hemoglobin 12.5 g/dL (11.5-16.0); IMMATURE GRAN ABSOLUTE AUTO 0.05 K/mm3 (0.00-0.10); IMMATURE GRAN PERCENT AUTO 0 % (0-1); LYMPHOCYTES ABSOLUTE AUTO 1.91 K/mm3 (0.84-5.20); LYMPHOCYTES PERCENT AUTO 15 % (21-46); MONOCYTES ABSOLUTE AUTO 1.01 K/mm3 (0.16-1.47); MONOCYTES PERCENT AUTO 8 % (4-13); Mean Corpuscular HGB Conc 32.7 g/dL (31.5-36.5); Mean Corpuscular Volume 95 fL (80-100); NEUTROPHILS ABSOLUTE AUTO 9.98 K/mm3 (1.96-9.15); NEUTROPHILS PERCENT AUTO 76 % (41-73); NRBC ABSOLUTE 0.00 K/mm3 (0.00-0.02); NRBC Auto 0.0 /100 WBC (0.0-0.2); Platelet Count 225 K/mm3 (150-400); RDW Coefficient Variation 21.7 % (11.7-14.2); RDW Standard Deviation 76.4 fL (35.1-46.3)
[2024-09-03 16:59] LABS: Color, Urine Amber (P-Yellow); Glucose Qualitative, Urine Neg (Neg); Ketones, Urine Neg (Neg); Leukocyte Esterase, Urine 2+ (Neg); Protein, Urine 2+ (Neg); Specific Gravity, Urine 1.025 (1.003-1.022); Urobilinogen, Urine 3+ (Normal)
[2024-09-03 17:06] LABS: Bilirubin, Urine 1+ (Neg)
[2024-09-03] MEDS ORDERED: Ketorolac Tromethamine 15mg Vial IV ONE (17:30)
[2024-09-03 17:37] LABS: Alanine Aminotransfer (ALT/SGP 23.0 U/L (12-78); Albumin, Blood 3.1 g/dL (3.4-5.0); Albumin/Globulin Ratio 0.7 (0.8-1.8); Anion Gap 6.0 mmol/L (3-11); Aspartate Aminotrans (AST/SGOT 14.0 U/L (12-37); Bilirubin, Total 0.8 mg/dL (0.1-1.0); Blood Urea Nitrogen 9.0 mg/dL (8-24); CO2, Blood 26.0 mmol/L (21-32); Calcium, Blood 8.9 mg/dL (8.5-10.1); Chloride, Blood 108.0 mmol/L (98-108); Creatinine, Blood 0.86 mg/dL (0.40-1.00); Globulin, Blood 4.3 g/dL (2.2-4.0); Glucose, Blood 95.0 mg/dL (70-99); Potassium, Blood 3.6 mmol/L (3.5-5.5); Sodium, Blood 136.0 mmol/L (136-145); Total Protein, Blood 7.4 g/dL (6.4-8.2)
[2024-09-03 17:49] VITALS: BP 157/82
[2024-09-03] MEDS ORDERED: CEPH500 PO (20:51)
== END 2024-09-03 21:09 | disposition home or self-care (01) ==
LOC: ER 16:06
PROVIDERS: Student in an Organized Health Care Education/Training Program
DX: L02.31 Cutaneous abscess of buttock (principal); N39.0 Urinary tract infection, site not specified; I10 Essential (primary) hypertension; I25.2 Old myocardial infarction; I48.91 Unspecified atrial fibrillation; F17.210 Nicotine dependence, cigarettes, uncomplicated; Z88.8 Allergy status to other drugs, medicaments and biological substances; Z79.01 Long term (current) use of anticoagulants; Z79.51 Long term (current) use of inhaled steroids; Z79.899 Other long term (current) drug therapy; Z59.89 Other problems related to housing and economic circumstances
CPT/HCPCS: 72193; 80053; 81001; 85025; 87070; 87075; 87077; 87086; 87147; 87186; 87205; 96374-59; 99283-25; A9270; J1885; Q9967